=== PATIENT | female | born 1975 | race Caucasian/White ===

== ENCOUNTER → 2021-03-28 12:02 | Outpatient (CLI) | payer OTHER, MEDICARE, SELFPAY ==
[2015-11-28 10:20] VITALS: BMI 37.4
[2021-03-28 12:12] LABS: Mucous, Urine 0 SEEN /hpf (<or=2+); Red Blood Cells-Urine 0 SEEN /hpf (0-5)
[2021-03-28 14:57] LABS: Color, Urine Yellow (Yellow); Glucose, Dipstick Normal (Normal); Ketone-Dipstick Negative (Negative); Leukocyte Esterase-Dipstick 25 /ul (Negative); Nitrite-Dipstick Positive (Negative); Occult Blood-Urine 150 /ul (Negative); Protein-Dipstick Negative (Negative); Specific Gravity, Urine 1.015 (1.002-1.030); Urine Bilirubin Dipstick Negative (Negative); Urine Clarity Clear (Clear); Urine Urobilinogen Normal (Normal)
[2021-03-28 15:02] LABS: White Blood Cells 10-25 SEEN /hpf (0-5)
[2021-03-28 15:03] LABS: Bacteria RARE /hpf (None Seen); Squamous Epithelial Cells - UA 5-10 SEEN /hpf (5-10)
[2021-03-28 15:28] LABS: ALB/GLOB Ratio 0.9 RATIO (0.9-2.4); AST(SGOT) 17 U/L (15-37); Alanine Aminotransfer ALT/SGPT 32 U/L (13-56); Albumin, Serum 3.5 g/dL (3.2-5.0); Alkaline Phosphatase 65 U/L (45-117); Anion Gap 9 (5-15); BUN 12 mg/dL (7-18); BUN/Creat Ratio 16.1 RATIO (10-20); Calcium,Total 8.7 mg/dL (8.5-10.1); Chloride 103 mmol/L (98-107); Cholesterol 151 mg/dL (200); Creatinine, Serum 0.74 mg/dL (0.55-1.02); EST Glomerular Filtration Rate 90 mL/min (>60); Est Glom Filt Rate - Afr Amer 109 mL/min (>60); Globulin 4.1 g/dL (2.2-4.2); Glucose 92 mg/dL (74-106); High Density Lipoprotein 58 mg/dL; Potassium 3.8 mmol/L (3.5-5.1); Protein, Total 7.6 g/dL (6.4-8.2); Sodium Level 138 mmol/L (136-145); Thyroid Stim Hormone (TSH) 2.49 uIU/mL (0.358-3.74); Triglycerides 149 mg/dL; Very Low Density Lipoprotein 30 mg/dL (5-40)
== END ==
PROVIDERS: PCP Family Medicine; Referring Provider Family Medicine; Visit Provider Family Medicine
DX: I10 Essential (primary) hypertension (principal); M08.00 Unspecified juvenile rheumatoid arthritis of unspecified site
CPT/HCPCS: 36415; 80053; 80061; 81001; 84443

== ENCOUNTER → 2021-04-03 | Outpatient (CLI) | payer OTHER, MEDICARE, SELFPAY | END | disposition home or self-care (01) | LOC: LABSPEC 15:28 | PROVIDERS: PCP Family Medicine; Visit Provider Family Medicine | DX: N39.0 Urinary tract infection, site not specified (principal) | CPT/HCPCS: 87077; 87086; 87088; 87186 ==

== ENCOUNTER → 2021-07-04 | Outpatient (CLI) | payer OTHER, MEDICARE, SELFPAY | END | disposition home or self-care (01) | LOC: LABSPEC 15:07 | PROVIDERS: PCP Family Medicine; Visit Provider Family Medicine | DX: U07.1 COVID-19 (principal) | CPT/HCPCS: 87635; U0005; U0003 ==

== ENCOUNTER 2021-07-06 15:10 | Outpatient (CLI) | payer OTHER, MEDICARE, SELFPAY ==
[2021-07-06 15:26] VITALS: BP 122/92; PULSE 63; RESP 18; TEMP 37.1; O2SAT 95; BMI 56.7
[2021-07-06] MEDS: 0.9% Saline Lock 10 ML Syringe IV (15:48)
[2021-07-06 16:14] VITALS: BP 105/81; PULSE 58; RESP 20; TEMP 37; O2SAT 95
[2021-07-06 17:14] VITALS: BP 114/78; PULSE 56; RESP 16; TEMP 36.9; O2SAT 96
== END 2021-07-06 17:16 | disposition home or self-care (01) ==
LOC: ICUOUT 15:11 → MS2 15:12
PROVIDERS: PCP Family Medicine; Referring Provider Nurse Practitioner Acute Care; Visit Provider Nurse Practitioner Acute Care
DX: Z23 Encounter for immunization (principal); U07.1 COVID-19
CPT/HCPCS: J7050; M0243; A4216; Q0244

== ENCOUNTER 2021-08-17 18:57 | Emergency (ER) | payer OTHER, MEDICARE, SELFPAY ==
[2021-08-17 18:58] VITALS: BP 199/101; PULSE 115; RESP 18; TEMP 36.7; O2SAT 97; BMI 56.8
[2021-08-17 19:01] VITALS: BP 199/101; PULSE 115; RESP 18; TEMP 36.7; O2SAT 97
[2021-08-17 19:44] LABS: Mucous, Urine 0 SEEN /hpf (<or=2+)
[2021-08-17 19:48] LABS: Color, Urine Brown (Yellow); Glucose, Dipstick Normal (Normal); Ketone-Dipstick 5 mg/dl (Negative); Leukocyte Esterase-Dipstick 500 /ul (Negative); Nitrite-Dipstick Positive (Negative); Occult Blood-Urine 250 /ul (Negative); Protein-Dipstick 100 mg/dl (Negative); Urine Clarity Turbid (Clear); Urine Urobilinogen 1 mg/dl (Normal); Urine pH 6.5 (5.0 - 8.0)
[2021-08-17 19:49] LABS: Urine Bilirubin Dipstick 1 mg/dL (Negative)
[2021-08-17 20:01] LABS: Red Blood Cells-Urine > 100 SEEN /hpf (0-5); White Blood Cells 0-5 SEEN /hpf (0-5)
[2021-08-17 20:02] LABS: Bacteria 1+ /hpf (None Seen); Squamous Epithelial Cells - UA 0-5 SEEN /hpf (5-10)
[2021-08-17] MEDS: Phenazopyridine 95 MG Tablet PO (21:08)
[2021-08-17] MEDS: Cephalexin 250 MG Capsule 500 MG PO (21:08)
--- NOTE | 2021-08-17 22:03 | ED.VIS.FEGU ---
HPI HPI - Female History of Present Illness Chief Complaint: Complaint Narrative Narrative: 46-year-old female presenting with dysuria and urinary frequency as well as some hematuria for the last 2 to 3 days. She denies fever, systemic signs or symptoms. Patient has not had any nausea or vomiting. She denies history of kidney stones. Her most recent UTI was a couple of months ago. She was on antibiotics but cannot recall what the name of it is. Patient states she did develop a yeast infection after this needed Diflucan. Patient denies flank pain. PFSH PFSH Home Medications atenolol-chlorthalidone 50 tab PO DAILY 07/06/21 [History Last Taken Unknown] cephalexin 500 mg PO BID 7 Days #14 cap 08/17/21 [Rx Last Taken Unknown] fluconazole [Diflucan] 150 mg PO DAILY #1 tab 08/17/21 [Rx Last Taken Unknown] phenazopyridine [Pyridium] 100 mg PO Q8H 2 Days #6 tab 08/17/21 [Rx Last Taken Unknown] Allergy/AdvReac Type Severity Reaction Status Date / Time morphine Allergy Hives Verified 07/05/21 13:59 Sulfa (Sulfonamide AdvReac Vomiting Verified 07/05/21 13:59 Antibiotics) Surgical History History of hip replacement Total knee replacement status Tubal ligation status Social History Smoking Status: Former smoker ROS ROS ED Constitutional Constitutional ED: Denies chills or fever(s) Eyes Eyes: Denies blurry vision or change in vision ENT ENT ED: Denies rhinorrhea or sore throat Cardiovascular Cardiovascular: Denies chest pain or palpitations Respiratory/Chest Respiratory/Chest: Denies cough or dyspnea Gastrointestinal Gastrointestinal: Denies abdominal pain, nausea or vomiting Genitourinary Genitourinary ED: Reports dysuria, hematuria and urinary frequency Musculoskeletal Musculoskeletal: Denies arthralgias or myalgias Integumentary Denies Abrasions or rash Neurologic Neurologic: Denies headache(s) or paresthesias EXAM Physical Exam Const Vital Signs: 08/17/21 18:58 08/17/21 19:01 Temperature 98.0 F 98.0 F Temperature Source Temporal Temporal Pulse Rate 115 H 115 H Respiratory Rate 18 18 Blood Pressure 199/101 H 199/101 H Blood Pressure Mean 133 133 Pulse Ox 97 97 Oxygen Delivery Method Nasal Cannula Room Air Positive well nourished General Appearance ED: NAD; Negative for pallor HEENT Reports moist mucous membranes Negative for trauma Eyes PERRL and EOMs intact bilaterally Resp normal respiratory effort and clear to auscultation bilaterally Cardio regular rate and regular rhythm GI normal to inspection, nondistended, normoactive bowel sounds Psych mental status grossly normal Skin General Skin Exam: Negative for jaundice or pallor MDM MDM MDM Narrative Medical decision making narrative: Patient presenting with hematuria and dysuria as well as urinary frequency. Urinalysis is positive for infection. Patient does not have any flank pain or concern for history of kidney stones. Patient will be treated symptomatically and started on Keflex 500 mg with first dose in the ED. She is given a prescription for this as well as Pyridium. She requested a dose of Diflucan because she developed a yeast infection after her last UTI. This was provided. She is given return precautions. Urine culture is sent and is pending. Impression: 1 UTI Lab Data Labs: Laboratory Results - last 24 hr 08/17/21 19:35 Urine Color Brown Urine Clarity Turbid Urine pH 6.5 Ur Specific [place] 1.020 Urine Protein 100 H Urine Glucose (UA) Normal Urine Ketones 5 H Urine Occult Blood 250 H Urine Nitrite Positive H Urine Bilirubin 1 H Urine Urobilinogen 1 H Ur Leukocyte Esterase 500 H Urine RBC > 100 SEEN Urine WBC 0-5 SEEN Ur Squamous Epith Cells 0-5 SEEN Urine Bacteria 1+ Urine Mucus 0 SEEN Discharge Plan Triage Chief Complaint: Complaint ED Provider: Bharat Dejesus Dx/Rx/DC Orders Instructions: ED CYSTITIS Female Adult Prescriptions: New cephalexin 500 mg capsule 500 mg PO BID 7 Days Qty: 14 RF: 0 phenazopyridine [Pyridium] 100 mg tablet 100 mg PO Q8H 2 Days Qty: 6 RF: 0 fluconazole [Diflucan] 150 mg tablet 150 mg PO DAILY Qty: 1 RF: 0 No Action atenolol-chlorthalidone 50-25 mg tablet 50 tab PO DAILY RF: 0 Primary Care Provider: Mary Fernandez Referrals: Mary Fernandez MD [Primary Care Provider] - Disposition Disposition: Home, Self Care Discharge Date/Time: 08/17/21 21:17
== END 2021-08-17 21:17 | disposition home or self-care (01) ==
PROVIDERS: Emergency Provider Student in an Organized Health Care Education/Training Program; PCP Family Medicine
DX: N39.0 Urinary tract infection, site not specified (principal); R31.9 Hematuria, unspecified; Z79.899 Other long term (current) drug therapy; Z87.440 Personal history of urinary (tract) infections; Z87.891 Personal history of nicotine dependence
CPT/HCPCS: 81001; 99281; 99283

== ENCOUNTER → 2023-11-10 | Outpatient (CLI) | payer OTHER, MEDICARE, SELFPAY ==
--- NOTE | 2023-11-10 09:13 | BI_ITS ---
MAMMOGRAPHY - BILATERAL DIAGNOSTIC REASON FOR EXAM: Female, 48 years old. Small palpable lump in the retroareolar region of the right breast. PERTINENT HISTORY: Non-contributory. TECHNIQUE: Digital bilateral breast lucrecia (3D mammographic acquisition) in the CC and MLO projections. 2-D mediolateral oblique (MLO) and craniocaudad (CC) views of both breasts were obtained. CAD: Full Field Digital Mammography with Computer Added Detection was performed. COMPARISON: None. Baseline examination. FINDINGS: Breast Composition: The breasts are heterogeneously dense, which may obscure small masses. There are no dominant masses or suspicious calcifications. No other significant abnormalities are identified. BI/DIAG MAMM W/CAD, BILAT IMPRESSION: Negative diagnostic mammogram. With the patient''s history of a palpable lump in the retroareolar region of the right breast, correlation with ultrasound is recommended. ASSESSMENT CATEGORY: BIRADS Category 0: Incomplete. Need additional imaging evaluation. A letter regarding these results will be sent to the patient by the facility within 30 days. Approximately 10% of breast cancers are not detected by mammography. A normal mammogram should not delay biopsy of a clinically suspicious abnormality. Electronically Signed: Chandler Haley MD at 8:46 EST ,
--- NOTE | 2023-11-10 09:13 | US_ITS ---
STUDY: ULTRASOUND BREAST - RIGHT REASON FOR EXAM: Female, 48 years old. Palpable lump in the lateral aspect of the right breast. TECHNIQUE: Axial and longitudinal images of the RIGHT breast were performed with a high resolution ultrasound transducer. # OF IMAGES: 20 COMPARISON: Comparison is made with prior mammogram dated November 2023. FINDINGS: RIGHT Breast: The lateral aspect of the right breast was examined with ultrasound. No sonographic abnormalities seen. US/Breast Limited Unilateral IMPRESSION: No sonographic abnormality is seen. ASSESSMENT CATEGORY: BIRADS Category 1: Negative. A letter regarding these results will be sent to the patient by the facility within 30 days. Electronically Signed: Chandler Haley MD at 11:28 EST ,
== END | disposition home or self-care (01) ==
LOC: OPBI 09:11
PROVIDERS: PCP Family Medicine; Referring Provider Family Medicine; Visit Provider Family Medicine
DX: N63.10 Unspecified lump in the right breast, unspecified quadrant (principal)
CPT/HCPCS: 76642; 77062; 77066; G0279

== ENCOUNTER → 2025-07-15 | Outpatient (CLI) | payer MEDICARE, BC, SELFPAY ==
[2025-07-15 15:26] LABS: Hematocrit 41.7 % (37-47); Hemoglobin 13.8 g/dL (12.0-15.0); Immature Granulocytes Count 0.100 X10^3/uL (0.0-0.0); Mean Corp Hgb Conc 33.1 g/dL (32-36); Mean Corpuscular Volume 89.5 fL (81-99); Mean Platelet Vol. 10.9 fl (6.2-12.0); NRBC Flagged by Analyzer 0 % (0-5); Platelet Count 400 K/mm3 (150-450); RBC Distribution Width CV 13.4 % (11.6-14.6); RBC Distribution Width SD 43.8 fl (35.1-43.9); Red Blood Count 4.66 M/mm3 (4.2-5.4); White Blood Count 10.9 K/mm3 (4.4-11.0)
[2025-07-15 16:18] LABS: AST(SGOT) 20 U/L (<=31); Alanine Aminotransfer ALT/SGPT 18 U/L (<=34); Albumin, Serum 4.1 g/dL (3.5-5.0); Alkaline Phosphatase 65 U/L (35-104); Anion Gap 17 (5-15); BUN 15 mg/dL (4-19); BUN/Creat Ratio 19.6 RATIO (10-20); Calcium,Total 9.7 mg/dL (7.6-11.0); Carbon Dioxide 22.3 mmol/L (21.0-32.0); Chloride 99 mmol/L (98-108); Globulin 3.8 g/dL (2.2-4.2); Glucose 101 mg/dL (70-99); Potassium 3.6 mmol/L (3.3-5.1)
== END | disposition home or self-care (01) ==
LOC: BFHLAB 11:31
PROVIDERS: PCP Family Medicine; Visit Provider Family Medicine
DX: I10 Essential (primary) hypertension (principal)
CPT/HCPCS: 36415; 80053; 83036; 85025

== ENCOUNTER 2025-10-17 11:44 | Inpatient (IN) | payer BC, MEDICARE, SELFPAY ==
[2025-10-17 11:45] VITALS: BP 153/90; PULSE 80; RESP 20; TEMP 36.1; O2SAT 97
--- NOTE | 2025-10-17 17:36 | RAD_ITS ---
PROCEDURE: RIGHT FOOT MIN 3 VIEWS; ANKLE MIN 3 VIEWS 10/17/2025 REASON FOR EXAM: PAIN TECHNIQUE: Procedure Code: RADFO; RADCLARA Modality: DX Procedure: FOOT MIN 3 VIEWS; ANKLE MIN 3 VIEWS Laterality: Right COMPARISON: None. FINDINGS: No acute fracture or dislocation. Congruent ankle mortise. Diffuse ankylosis/coalition of the tarsal bones including ankylosis of the talonavicular, calcaneocuboid, and subtalar joint spaces. 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 Small calcaneal spurs. Mild nonspecific generalized soft tissue swelling/edema. RAD/Foot min 3 Views IMPRESSION: No acute or aggressive osseous abnormality. 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 Reading Location: [id number]
--- NOTE | 2025-10-17 17:36 | RAD_ITS ---
PROCEDURE: RIGHT FOOT MIN 3 VIEWS; ANKLE MIN 3 VIEWS 10/17/2025 REASON FOR EXAM: PAIN TECHNIQUE: Procedure Code: RADFO; RADCLARA Modality: DX Procedure: FOOT MIN 3 VIEWS; ANKLE MIN 3 VIEWS Laterality: Right COMPARISON: None. FINDINGS: No acute fracture or dislocation. Congruent ankle mortise. Diffuse ankylosis/coalition of the tarsal bones including ankylosis of the talonavicular, calcaneocuboid, and subtalar joint spaces. 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 Small calcaneal spurs. Mild nonspecific generalized soft tissue swelling/edema. RAD/Ankle min 3 Views IMPRESSION: No acute or aggressive osseous abnormality. 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 Reading Location: [id number]
--- NOTE | 2025-10-17 17:45 | RAD_ITS ---
PROCEDURE: LEFT FOOT MIN 3 VIEWS; ANKLE MIN 3 VIEWS 10/17/2025 REASON FOR EXAM: FALL; INJURY TECHNIQUE: Procedure Code: RADFO; RADANK Modality: DX Procedure: FOOT MIN 3 VIEWS; ANKLE MIN 3 VIEWS Laterality: Left COMPARISON: None. FINDINGS: No acute fracture or dislocation. Alignment is anatomic. Congruent ankle mortise. Mild-moderate degenerative arthrosis of the intertarsal articulations. Nonspecific generalized lower extremity soft tissue swelling/edema. No unusual mineralization. RAD/Foot min 3 Views IMPRESSION: No acute or aggressive osseous abnormality. Reading Location: [id number]
--- NOTE | 2025-10-17 17:45 | RAD_ITS ---
PROCEDURE: LEFT FOOT MIN 3 VIEWS; ANKLE MIN 3 VIEWS 10/17/2025 REASON FOR EXAM: FALL; INJURY TECHNIQUE: Procedure Code: RADFO; RADANK Modality: DX Procedure: FOOT MIN 3 VIEWS; ANKLE MIN 3 VIEWS Laterality: Left COMPARISON: None. FINDINGS: No acute fracture or dislocation. Alignment is anatomic. Congruent ankle mortise. Mild-moderate degenerative arthrosis of the intertarsal articulations. Nonspecific generalized lower extremity soft tissue swelling/edema. No unusual mineralization. RAD/Ankle min 3 Views IMPRESSION: No acute or aggressive osseous abnormality. Reading Location: [id number]
[2025-10-17 18:02] VITALS: BP 142/81; PULSE 74; RESP 20; O2SAT 97
--- NOTE | 2025-10-17 18:16 | EX.ED.DYSGE1 ---
HPI History of Present Illness Chief Complaint: Edema Narrative Narrative: Patient is 50-year-old female with past medical history of juvenile rheumatoid arthritis who presented to the emergency department the chief complaint of bilateral foot and ankle pain. She states that this been going on since Thanks however states that is progressively worsening which prompted her here to be further evaluated. States that she has been trying ibuprofen and Tylenol without any relief. Patient denies any injuries or falls. She states that she was concerned about her tendons even though she had no injuries or trauma and denies any popping sensation. PFSH PFSH Home Medications ?Medication ?Instructions ?Recorded ?Last Taken ?Type atenolol 50 mg-chlorthalidone 25 1 tab PO DAILY 07/06/21 10/17/25 History mg tablet ibuprofen 200 mg tablet (Advil) 400 mg PO Q6H PRN fever or pain 10/17/25 10/17/25 History tirzepatide (weight loss) 7.5 7.5 mg subcut QWEEK 10/17/25 10/07/25 History mg/0.5 mL subcutaneous pen injector (Zepbound) Allergy/AdvReac Type Severity Reaction Status Date / Time morphine Allergy Hives Verified 10/17/25 11:45 Sulfa (Sulfonamide AdvReac Vomiting Verified 10/17/25 11:45 Antibiotics) Surgical History Tubal ligation status Total knee replacement status History of hip replacement Social History Smoking Status: Former smoker ROS ROS ED ROS Narrative Constitutional: Denies fevers, chills, headaches Cardiovascular: Denies chest pain Respiratory: Shortness of breath Neurological: Denies numbness or tingling Musculoskeletal: Complains of bilateral foot and ankle pain as noted above Skin: Denies any rashes or lesions EXAM Physical Exam Narrative Exam Narrative: General: Patient was lying in bed rest comfortably did not appear to be in acute distress Head: Atraumatic, Eyes: PERRL bilaterally, EOMI bilaterally, no conjunctival injection no Neck: Soft, supple, trachea midline Cardiovascular: Regular rate and rhythm Respiratory: Clear to auscultation bilaterally Musculoskeletal: Bilateral lower extremity compartments are soft and compressible, tenderness to palpation over the right lateral malleolus as well as some mild tenderness to palpation over the left ankle as well. Negative Carcamo test bilaterally Extremities: DP pulses +2/4 in the bilateral lower extremities, +4/5 strength noted to bilateral lower extremities Neurological: Patient following commands knew that she was at [facility] year is 2024 sensation grossly intact Skin: Warm, dry, intact patient has mild ecchymosis over the right lateral malleolus. Const Vital Signs: 10/17/25 11:45 10/17/25 17:00 10/17/25 18:02 Temperature 97 F L Temperature Source Temporal Pulse Rate 80 74 Respiratory Rate 20 H 20 H Respiratory Effort Normal Respiratory Pattern Normal Blood Pressure 153/90 H 142/81 H Blood Pressure Mean 111 101 Pulse Ox 97 97 Oxygen Delivery Method Room Air Room Air 10/17/25 19:54 10/17/25 20:00 Temperature 97 F L Temperature Source Pulse Rate 74 69 Respiratory Rate 20 H 18 Respiratory Effort Respiratory Pattern Blood Pressure 142/81 H Blood Pressure Mean 101 Pulse Ox 97 100 Oxygen Delivery Method Room Air MDM MDM MDM Narrative Medical decision making narrative: Patient is a 50-year-old female who presented to the emergency department the chief complaint of bilateral foot and ankle pain. On the differential diagnose includes but limited to lateral malleolus fracture, medial malleolus fracture, ankle sprain. Once workup is obtained reviewed she will be reevaluated. Patient be given IM Toradol. Patient says CBC was reviewed and showed a leukocytosis of 17,000 this likely reactive, heme was 14.4, plate count was 9552. Patient's chemistries are pending. Discussed case with hospitalist as the patient was unable to get up and ambulate for PT OT evaluation as well as podiatry consult. Patient does state that she has had oxycodone in the past and tolerated this well she will be given a dose of this here in the emergency department will Vane. She is agreeable to plan all question concerns answered. Lab Data Labs: Laboratory Results - last 24 hr 10/17/25 20:00 WBC 17.3 H RBC 4.87 Hgb 14.4 Hct 43.0 MCV 88.3 MCH 29.6 MCHC 33.5 RDW Std Deviation 40.6 RDW Coeff of Kavon 12.6 Plt Count 552 H MPV 10.1 Immature Gran % (Auto) 1.000 H Neut % (Auto) 70.7 H Lymph % (Auto) 18.9 L [place] % (Auto) 7.8 Eos % (Auto) 1.0 Baso % (Auto) 0.6 Absolute Neuts (auto) 12.2 H Absolute Lymphs (auto) 3.27 Nucleated RBC % 0 Radiography Diagnostic Testing: Clinical Impression(s) from Imaging Studies Ankle X-Ray 10/17/25 17:36 IMPRESSION: No acute or aggressive osseous abnormality. 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 Reading Location: [facility] Foot X-Ray 10/17/25 17:36 IMPRESSION: No acute or aggressive osseous abnormality. 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 Reading Location: [facility] Ankle X-Ray 10/17/25 17:45 IMPRESSION: No acute or aggressive osseous abnormality. Reading Location: [id number] Foot X-Ray 10/17/25 17:45 IMPRESSION: No acute or aggressive osseous abnormality. Reading Location: [facility] Discharge Plan Dx/Rx/DC Orders Clinical Impression: Bilateral foot pain, Bilateral ankle pain, Hx of rheumatoid arthritis Disposition Disposition: [facility]
[2025-10-17 19:54] VITALS: BP 142/81; PULSE 74; RESP 20; TEMP 36.1; O2SAT 97
[2025-10-17 20:00] VITALS: PULSE 69; RESP 18; O2SAT 100
[2025-10-17] MEDS: 0.9% Normal Saline (1000mL) 1,000 ML 999 ML IV (20:02)
[2025-10-17 20:24] LABS: Hematocrit 43.0 % (37-47); Hemoglobin 14.4 g/dL (12.0-15.0); Immature Granulocytes Count 0.170 X10^3/uL (0.0-0.0); Mean Corp Hgb Conc 33.5 g/dL (32-36); Mean Corpuscular Volume 88.3 fL (81-99); Mean Platelet Vol. 10.1 fl (6.2-12.0); NRBC Flagged by Analyzer 0 % (0-5); Platelet Count 552 K/mm3 (150-450); RBC Distribution Width CV 12.6 % (11.6-14.6); RBC Distribution Width SD 40.6 fl (35.1-43.9); Red Blood Count 4.87 M/mm3 (4.2-5.4); White Blood Count 17.3 K/mm3 (4.4-11.0)
--- NOTE | 2025-10-17 20:29 | HP.PCM_ITS ---
[facility] - [facility] Date of Service: 10/17/25 Chief Complaint: Bilateral ankle pain, unable to ambulate [facility] Narrative ANAMARIA SHARP, is a 50 F who presents to the emergency room with chief complaint of bilateral ankle pain. Onset of this pain began at Thanksgiving time and has progressed to the point to which she is now unable to ambulate or transfer to do activities of daily living including going to the bathroom. Patient does have a history of juvenile arthritis but is currently not taking any DMARD medications at this time. Patient denies chest pain, shortness of breath fevers or chills at present time. She states she did start taking Zepbound and has had a 20 to 30 pound weight loss in the last several months. Laboratory studies show white blood cell count of 17.3, hemoglobin 14.4, hematocrit 43, platelets 552. X-ray left foot and ankle was negative for acute findings but showed some chronic arthritis, x-ray right foot and ankle also showed no acute bony abnormalities but did show moderate arthritic change. Since patient is unable to take care of herself and transfer for activities of daily living she will be admitted to general medical floor, podiatry consultation obtained for further assessment, will get PT to evaluate and treat as well as case management for discharge planning. Patient expressed wish to be full code at this time. [facility] Home Medications ?Medication ?Instructions ?Recorded ?Last Taken ?Type atenolol 50 mg-chlorthalidone 25 1 tab PO DAILY 10/17/25 History mg tablet ibuprofen 200 mg tablet (Advil) 400 mg PO Q6H PRN feve r or pain 10/17/25 10/17/25 History tirzepatide (weight loss) 7.5 7.5 mg subcut QWEEK 10/0310/07/25 History mg/0.5 mL subcutaneous pen injector (Zepbound) Allergy/AdvReac Type Severity Reaction Status Date / Time morphine Allergy Hives Verified 10/17/25 11:45 Sulfa (Sulfonamide AdvReac Vomiting Verified 10/17/25 11:45 Antibiotics) Surgical History Tubal ligation status Total knee replacement status History of hip replacement Social History Smoking Status: Former smoker ROS Constitutional Constitutional: Denies chills or fever(s) Eyes Eyes: Denies blurry vision ENT HEENT: Denies abnormal hearing Cardiovascular Cardiovascular: Reports edema; Denies chest pain Respiratory/Chest Respiratory/Chest: Denies cough or shortness of breath at rest Gastrointestinal Gastrointestinal: Denies abdominal pain, nausea or vomiting Genitourinary Genitourinary: Denies dysuria or hematuria Musculoskeletal Musculoskeletal: Reports joint pain; Denies back pain Integumentary Integumentary: Denies jaundice, rash or wounds Neurologic Neurologic: Denies abnormal gait Psychiatric Psychiatric: Denies anxiety or depression Vital Signs Vital Signs Vital Signs: 10/17/25 11:45 10/17/25 17:00 10/17/25 18:02 Temperature 97 F L Temperature Source Temporal Pulse Rate 80 74 Respiratory Rate 20 H 20 H Respiratory Effort Normal Respiratory Pattern Normal Blood Pressure 153/90 H 142/81 H Blood Pressure Mean 111 101 Pulse Ox 97 97 Oxygen Delivery Method Room Air Room Air 10/17/25 19:54 10/17/25 20:00 Temperature 97 F L Temperature Source Pulse Rate 74 69 Respiratory Rate 20 H 18 Respiratory Effort Respiratory Pattern Blood Pressure 142/81 H Blood Pressure Mean 101 Pulse Ox 97 100 Oxygen Delivery Method Room Air Physical Exam Const alert and oriented x3 General Appearance: cooperative and well developed HEENT normocephalic and head/scalp atraumatic Eyes PERRL Neck no lymphadenopathy Lymph Lymphatic: no lymphadenopathy noted Resp normal respiratory effort, normal air movement and clear to auscultation bilaterally Cardio regular rate, regular rhythm, S1 normal heart sound, S2 normal heart sound and no murmurs GI normal to inspection, nondistended, normoactive bowel sounds Extremity Extremity Narrative: Point tenderness on ankles lateral malleolus bilaterally. No palpable deformity and mild edema is present. There is no erythema or sign of infection General Extremity: edema bilateral lower extremity Details: mild Skin General Skin Exam: no breakdown and dry skin Lesions: no lesions Neuro no focal motor deficits and no sensory deficits noted Psych thought process normal, cooperative and affect normal Results Lab / Micro Data 10/17/25 20:00 10/17/25 20:00 Labs: Laboratory Results - last 24 hr 10/17/25 20:00: WBC 17.3 H, RBC 4.87, Hgb 14.4, Hct 43.0, MCV 88.3, MCH 29.6, MCHC 33.5, RDW Std Deviation 40.6, RDW Coeff of Kavon 12.6, Plt Count 552 H, MPV 10.1, Immature Gran % (Auto) 1.000 H, Neut % (Auto) 70.7 H, Lymph % (Auto) 18.9 L, [place] % (Auto) 7.8, Eos % (Auto) 1.0, Baso % (Auto) 0.6, Absolute Neuts (auto) 12.2 H, Absolute Lymphs (auto) 3.27, Nucleated RBC % 0 Imaging Radiology Impression Ankle X-Ray 10/17/25 17:36 IMPRESSION: No acute or aggressive osseous abnormality. 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 Reading Location: [facility] Foot X-Ray 10/17/25 17:36 IMPRESSION: No acute or aggressive osseous abnormality. 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 Reading Location: [facility] Ankle X-Ray 10/17/25 17:45 IMPRESSION: No acute or aggressive osseous abnormality. Reading Location: [facility] Foot X-Ray 10/17/25 17:45 IMPRESSION: No acute or aggressive osseous abnormality. Reading Location: [facility] Assessment & Plan Assessment/Plan (1) Hx of rheumatoid arthritis: (2) Bilateral ankle pain: (3) Bilateral foot pain: PLAN: Plan 1. Bilateral ankle and foot pain?patient is currently unable to ambulate and transfer due to her pain in her ankle and feet will therefore admit to general medical floor, consult podiatry Dr. Bills. Repeat CBC, BMP and uric acid level in a.m. along with ESR CRP. Due to the fact a history of rheumatoid arthritis would most likely consider this an active flareup of her known disease. Dr. Bills plans to see her in the morning and will assess if further imaging or other tests are needed at that time. 2. DVT prophylaxis?low molecular weight heparin 3. CODE STATUS full verified 4. Obesity?will hold her GLP-1 at this time Charges/Coding Visit Charges Inpatient E&M: 30761 Init Hosp L2
[2025-10-17 20:38] LABS: AST(SGOT) 20 U/L (<=31); Alanine Aminotransfer ALT/SGPT 19 U/L (<=34); Albumin, Serum 4.1 g/dL (3.5-5.0); Alkaline Phosphatase 66 U/L (35-104); Anion Gap 17 (5-15); BUN 20 mg/dL (4-19); BUN/Creat Ratio 19.1 RATIO (10-20); Calcium,Total 10.0 mg/dL (7.6-11.0); Carbon Dioxide 24.7 mmol/L (21.0-32.0); Chloride 96 mmol/L (98-108); Globulin 4.5 g/dL (2.2-4.2); Glucose 96 mg/dL (70-99); Potassium 3.4 mmol/L (3.3-5.1)
--- OUTSIDE RECORDS SUMMARY | 2025-10-17 21:03 | XMS RPT_ITS | CCD ---
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 Hernandez Primary Care Physician Jim LOPEZ, Dr. Hernandez Attending Physician Mary Fernandez Attending Unavailable Mary Fernandez Primary Care Unavailable Allergies Allergy Classification Reported Allergen(s) Allergy Type Date of Onset Reaction(s) Facility (2 sources) Morphine Drug Allergy 1 [facility] (2 sources) Sulfonamides (Antibiotic) Propensity to adverse reactions 1 [facility] (1 source) Morphine Drug Allergy 1 [facility]ository (1 source) Sulfonamides (Antibiotic) Drug allergy (disorder) 1 [facility] Rep[facility] Medications Current Medications Medication Drug Class(es) Dates Sig (Normalized) Sig (Original) atenolol 50 mg / chlorthalidone 25 mg oral tablet (2 sources) Thiazide-like Diuretic, beta-Adrenergic Edith Start: 07-06-2021 Start: 07-06-2021 take 1 tablet by once daily Atenolol-Chlorthalidone Active 50 TABLET PO DAILY July 05, 2021 11:00pm cephalexin 500 mg oral capsule (2 sources) Cephalosporin Antibacterial Start: 08-17-2021 take 1 capsule by mouth twice daily fluconazole 150 mg oral tablet (2 sources) Azole Antifungal Start: 08-17-2021 take 1 tablet by mouth once daily phenazopyridine hydrochloride 100 mg oral tablet (2 sources) Start: 08-17-2021 take 1 tablet by mouth every eight hours Problems Problem Classification Problem Date Documented Da te Episodic/Chronic Essential hypertension (1 source) Essential (primary) hypertension; Translations: [Essential (primary) hypertension] Onset: 08-05-2025 Chronic Viral infection (2 sources) Disease caused by 2019-nCoV; Translations: [COVID-19] 07-05-2021 Episodic Results Test Name Value Interpretation Reference Range Facility Absolute lymphocyte countOrd ered By: Mary Fernandez on 07-15-2025 Lymphocytes Auto (Unsp spec) [#/Vol] 2.73 10*3/uL 0.83-4.51 [facility] Absolute neutrophil countOrd ered By: Mary Fernandez on 07-15-2025 Neutrophils (Bld) [#/Vol] 6.9 10*3/uL 2.0-7.7 [facility] Anion gap in Serum or Plasma Ordered By: Mary Fernandez on 07-15-2025 Anion gap [Moles/Vol] 17 mmol/L High 5-15 [facility] Automated lymphocyte count a s percentage of total leukocytesOrdered By: Mary Fernandez on 07-15-2025 Lymphocytes/100 WBC Auto (Unsp spec) 25.1 % 19-41 [facility] BUN/creatinine ratioOrdered By: Mary Fernandez on 07-15-2025 Urea nitrogen/Creatinine [Mass ratio] 19.6 mg/mg 10-20 [facility] Basophil percentageOrdered B y: Mary Fernandez on 07-15-2025 Basophils/100 WBC (Bld) 0.8 % 0- [facility] Bilirubin, totalOrdered By: Mary Fernandez on 07-15-2025 Bilirubin [Mass/Vol] 0.30 mg/dL 0.00-1.30 [facility] CBC W/Diff, Automatedon 07-04 Absolute Lymph 2.73 X10 3/uL Normal 0.83-4.51 [facility] Comment on above: Performed By: #### L 501.9985, L100.0100, L500.4050 #### [facility] [address] [place], [address] Absolute Neut 6.9 X10 3/uL Normal 2.0-7.7 [facility] Comment on above: Performed By: #### L 501.9985, L100.0100, [id number] #### [facility] [address] [place], [address] Basophils/100 WBC (Bld) 0.8 % Normal 0-1 [facility] Comment on above: Performed By: #### L 501.9985, L100.0100, [id number] #### [facility] [address] [place], [address] Eosinophils/100 WBC (Bld) 2.3 % Normal 0-5 [facility] Comment on above: Performed By: #### L 501.9985, L100.0100, [id number] #### [facility] [address] [place], [address] Erythrocyte distribution width (RBC) [Ratio] 13.4 % Normal 11.6-14.6 [facility] Comment on above: Performed By: #### L 501.9985, L100.0100, [id number] #### [facility] [address] [place], [address] Hematocrit (Bld) [Volume fraction] 41.7 % Normal 37-47 [facility] Comment on above: Performed By: #### L 501.9985, L100.0100, [id number] #### [facility] [address] [place], [address] Hemoglobin (Bld) [Mass/Vol] 13.8 g/dL Normal 12.0-15.0 [facility] Comment on above: Performed By: #### L 501.9985, L100.0100, [id number] #### [facility] [address] [place], [address] IG% 0.900 Normal 0.0-0.9 [facility] Comment on above: Result Comment: IG% - Immature Granulocytes (promyelocytes, myelocytes and metamyelocytes) > 1% indicates that a LEFT SHIFT is Present. Performed By: #### L 501.9985, L100.0100, L500.4050 #### [facility] [address] [place], [address] Lymphocytes/100 WBC (Bld) 25.1 % Normal 19-41 [facility] Comment on above: Performed By: #### L 501.9985, L100.0100, [id number] #### [facility] [address] [place], [address] MCH (RBC) [Entitic mass] 29.6 pg Normal 27.0-32.0 [facility] Comment on above: Performed By: #### L 501.9985, L100.0100, [id number] #### [facility] [address] [place], [address] MCHC (RBC) [Mass/Vol] 33.1 g/dL Normal 32-36 [facility] Comment on above: Performed By: #### L 501.9985, L100.0100, [id number] #### [facility] [address] [place], [address] MCV (RBC) [Entitic vol] 89.5 fL Normal 81-99 [facility] Comment on above: Performed By: #### L 501.9985, L100.0100, [id number] #### [facility] [address] [place], [address] Monocytes/100 WBC (Bld) 7.8 % Normal 0-10 [facility] Comment on above: Performed By: #### L 501.9985, L100.0100, [id number] #### [facility] [address] [place], [address] Neutrophils/100 WBC (Bld) 63.1 % Normal 47-70 [facility] Comment on above: Performed By: #### L 501.9985, L100.0100, [id number] #### [facility] [address] [place], [address] Nucleated RBC (Bld) [#/Vol] 0 10*3/uL Normal 0-5 [facility] Comment on above: Performed By: #### L 501.9985, L100.0100, [id number] #### [facility] [address] [place], [address] Platelet mean volume (Bld) [Entitic vol] 10.9 fL Normal 6.2-12.0 [facility] Comment on above: Performed By: #### L 501.9985, L100.0100, [id number] #### [facility] [address] [place], [address] Platelets (Bld) [#/Vol] 400 10*3/uL Normal 150-450 [facility] Comment on above: Performed By: #### L 501.9985, L100.0100, [id number] #### [facility] [address] [place], [address] RBC (Bld) [#/Vol] 4.66 10*6/uL Normal 4.2-5.4 [facility] Comment on above: Performed By: #### L 501.9985, L100.0100, [id number] #### [facility] [address] [place], [address] RDW SD 43.8 fl Normal 35.1-43.9 [facility] Comment on above: Performed By: #### L 501.9985, L100.0100, [id number] #### [facility] [address] [place], [address] WBC (Bld) [#/Vol] 10.9 10*3/uL Normal 4.4-11.0 [facility] Comment on above: Performed By: #### L 501.9985, L100.0100, [id number] #### [facility] [address] [place], [address] Carbon dioxide, total [Moles /volume] in Central venous bloodOrdered By: Mary Fernandez on 07-15-2025 CO2 [Moles/Vol] 22.3 mmol/L 21.0-32.0 [facility] Chloride assayOrdered By: Dave Fernandez on 07-15-2025 Chloride [Moles/Vol] 99 mmol/L 98-108 [facility] Comprehensive Metabolic Prof ilon 07-15-2025 Albumin [Mass/Vol] 4.1 g/dL Normal 3.5-5.0 [facility] Comment on above: Performed By: #### L 501.9985, L100.0100, [id number] #### [facility] [address] [place], [address] Albumin/Globulin [Mass ratio] 1.1 {ratio} Normal 0.9-2.4 [facility] Comment on above: Performed By: #### L 501.9985, L100.0100, [id number] #### [facility] [address] [place], [address] ALK PHOS 65 U/L Normal 35-104 [facility] Comment on above: Performed By: #### L 501.9985, L100.0100, [id number] #### [facility] [address] [place], [address] ALT [Catalytic activity/Vol] 18 U/L Normal <=34 [facility] Comment on above: Performed By: #### L 501.9985, L100.0100, [id number] #### [facility] [address] [place], [address] AST [Catalytic activity/Vol] 20 U/L Normal <=31 [facility] Comment on above: Performed By: #### L 501.9985, L100.0100, [id number] #### [facility] [address] [place], [address] Bilirubin [Mass/Vol] 0.30 mg/dL Normal 0.00-1.30 [facility] Comment on above: Performed By: #### L 501.9985, L100.0100, [id number] #### [facility] [address] [place], [address] BUN/CRE 19.6 RATIO Normal 10-20 [facility] Comment on above: Performed By: #### L 501.9985, L100.0100, [id number] #### [facility] [address] [place], [address] Calcium [Mass/Vol] 9.7 mg/dL Normal 7.6-11.0 [facility] Comment on above: Performed By: #### L 501.9985, L100.0100, [id number] #### [facility] [address] [place], [address] Chloride [Moles/Vol] 99 mmol/L Normal 98-108 [facility] Comment on above: Performed By: #### L 501.9985, L100.0100, [id number] #### [facility] [address] [place], [address] CO2 [Moles/Vol] 22.3 mmol/L Normal 21.0-32.0 [facility] Comment on above: Performed By: #### L 501.9985, L100.0100, [id number] #### [facility] [address] [place], [address] Creatinine [Mass/Vol] 0.77 mg/dL Normal 0.70-1.20 [facility] Comment on above: Performed By: #### L 501.9985, L100.0100, [id number] #### [facility] [address] [place], [address] GAP 17 High 5-15 [facility] Comment on above: Performed By: #### L 501.9985, L100.0100, [id number] #### [facility] [address] [place], [address] GFR/1.73 sq M.predicted among non-blacks MDRD (S/P/Bld) [Vol rate/Area] 95 mL/min/{1.73_m2} Normal >60 [facility] Comment on above: Result Comment: mL/m in/1.73m2 CKD-EPI Creatinine Equation (2020) Performed By: #### L 501.9985, L100.0100, [id number] #### [facility] [address] [place], [address] Globulin (S) [Mass/Vol] 3.8 g/dL Normal 2.2-4.2 [facility] Comment on above: Performed By: #### L 501.9985, L100.0100, [id number] #### [facility] [address] [place], [address] Glucose [Mass/Vol] 101 mg/dL High 70-99 [facility] Comment on above: Performed By: #### L 501.9985, L100.0100, [id number] #### [facility] [address] [place], [address] Potassium [Moles/Vol] 3.6 mmol/L Normal 3.3-5.1 [facility] Comment on above: Performed By: #### L 501.9985, L100.0100, [id number] #### [facility] [address] [place], [address] Sodium [Moles/Vol] 138 mmol/L Normal 133-145 [facility] Comment on above: Performed By: #### L 501.9985, L100.0100, [id number] #### [facility] [address] [place], [address] T PROT 7.9 g/dL Normal 5.9-8.4 [facility] Comment on above: Performed By: #### L 501.9985, L100.0100, [id number] #### [facility] [address] [place], [address] Urea nitrogen [Mass/Vol] 15 mg/dL Normal 4-19 [facility] Comment on above: Performed By: #### L 501.9985, L100.0100, [id number] #### [facility] [address] [place], [address] Eosinophil percentageOrdered By: Mary Fernandez on 07-15-2025 Eosinophils/100 WBC (Bld) 2.3 % 0-5 [facility] Erythrocyte distribution wid th ratioOrdered By: Mary Jim on 07-15-2025 Erythrocyte distribution width (RBC) [Ratio] 13.4 % 11.6-14.6 [facility] Erythrocyte distribution wid th standard deviationOrdered By: Mary Fernandez on 07-15-2025 Erythrocyte distribution width (RBC) [Ratio] 43.8 fl 35.1-43.9 [facility] Glomerular filtration rate ( GFR) estimation/1.73 sq m using serum, plasma, or whole bOrdered By: Mary Fernandez on 07-15-2025 GFR/1.73 sq M.predicted among non-blacks MDRD (S/P/Bld) [Vol rate/Area] 95 mL/min/{1.73_m2} >60 [facility] Comment on above: mL/min/1.73m2 CKD-EP I Creatinine Equation (2020) Hematocrit Auto (Bld) [Volum e fraction]Ordered By: Mary Fernandez on 07-15-2025 Hematocrit (Bld) [Volume fraction] 41.7 % 37-47 [facility] Hemoglobin A1con 07-15-2025 HbA1c (Bld) [Mass fraction] 5.7 % Normal <=5.6 [facility] Comment on above: Result Comment: Norm al < 5.7 % Prediabetic 5.7 - 6.4 % Diabetic >or= 6.5 % Please note range changes. Performed By: #### L 501.9937, L100.0100, L500.4050 #### [facility] [address] [place], [address] Hemoglobin A1c percentageOrd ered By: Mary Fernandez on 07-15-2025 HbA1c (Bld) [Mass fraction] 5.7 % <5.7 [facility] Comment on above: Normal < 5.7 % Predi abetic 5.7 - 6.4 % Diabetic >or= 6.5 % Please note range changes. Hemoglobin measurementOrdere d By: Mary Fernandez on 07-15-2025 Hemoglobin (Bld) [Mass/Vol] 13.8 g/dL 12.0-15.0 [facility] Immature granulocytes/100 WB C Auto (Bld)Ordered By: Mary Fernandez on 07-15-2025 Immature granulocytes/100 WBC (Bld) 0.900 % 0.0-0.9 [facility] Comment on above: IG% - Immature Granu locytes (promyelocytes, myelocytes and metamyelocytes) > 1% indicates that a LEFT SHIFT is Present. Laboratory - Chemistry and C hemistry - challengeOrdered By: Mary Fernandez on 07-15-2025 AST [Catalytic activity/Vol] 20 U/L <32 [facility] MCV (mean corpuscular volume ) determinationOrdered By: Mary Fernandez on 07-15-2025 MCV (RBC) [Entitic vol] 89.5 fL 81-99 [facility] Mean corpuscular hemoglobin (MCH) determinationOrdered By: Mary Fernandez on 07-15-2025 MCH (RBC) [Entitic mass] 29.6 pg 27.0-32.0 [facility] Mean corpuscular hemoglobin concentration (MCHC) determinationOrdered By: Mary Fernandez on 07-15-2025 MCHC (RBC) [Mass/Vol] 33.1 g/dL 32-36 [facility] Mean platelet volume determi nationOrdered By: Mary Fernandez on 07-15-2025 Platelet mean volume (Bld) [Entitic vol] 10.9 fL 6.2-12.0 [facility] Monocyte percentageOrdered B y: Mary Fernandez on 07-15-2025 Monocytes/100 WBC (Bld) 7.8 % 0-10 [facility] Neutrophil percentageOrdered By: Mary Fernandez on 07-15-2025 Neutrophils/100 WBC (Bld) 63.1 % 47-70 [facility] Nucleated red blood cell per centageOrdered By: Mary Fernandez on 07-15-2025 Nucleated RBC/100 WBC (Bld) [Ratio] 0 % 0-5 [facility] Platelet countOrdered By: Dave Fernandez on 07-15-2025 Platelets (Bld) [#/Vol] 400 10*3/uL 150-450 [facility] Potassium measurement (mass/ volume)Ordered By: Mary Fernandez on 07-15-2025 Potassium (Unsp spec) [Mass/Vol] 3.6 mmol/L 3.3-5.1 [facility] RBC Auto (Bld) [#/Vol]Ordere d By: Mary Fernandez on 07-15-2025 RBC (Bld) [#/Vol] 4.66 10*6/uL 4.2-5.4 [facility] Serum creatinine measurement (mass/volume)Ordered By: Mary Fernandez on 07-15-2025 Creatinine [Mass/Vol] 0.77 mg/dL 0.70-1.20 [facility] Serum globulin measurementOr dered By: Mary Fernandez on 07-15-2025 Globulin (S) [Mass/Vol] 3.8 g/dL 2.2-4.2 [facility] Serum glucose measurement (m ass/volume)Ordered By: Mary Fernandez on 07-15-2025 Glucose [Mass/Vol] 101 mg/dL High 70-99 [facility] Serum or plasma alanine nunez otransferase (ALT) measurementOrdered By: Mary Fernandez on 07-15-2025 ALT [Catalytic activity/Vol] 18 U/L <35 [facility] Serum or plasma albumin efra urement (mass/volume)Ordered By: Mary Fernandez on 07-15-2025 Albumin [Mass/Vol] 4.1 g/dL 3.5-5.0 [facility] Serum or plasma albumin/glob ulin mass ratioOrdered By: Mary Fernandez on 07-15-2025 Albumin/Globulin [Mass ratio] 1.1 {ratio} 0.9-2.4 [facility] Serum or plasma alkaline brenda sphatase measurementOrdered By: Mary Fernandez on 07-15-2025 ALP [Catalytic activity/Vol] 65 U/L 35-104 [facility] Serum or plasma calcium efra urement (mass/volume)Ordered By: Mary Fernandez on 07-15-2025 Calcium [Mass/Vol] 9.7 mg/dL 7.6-11.0 [facility] Serum or plasma urea nitroge n measurement (mass/volume)Ordered By: Mary Fernandez on 07-15-2025 Urea nitrogen [Mass/Vol] 15 mg/dL 4-19 [facility] Sodium levelOrdered By: Vel Fernandez on 07-15-2025 Sodium [Moles/Vol] 138 mmol/L 133-145 [facility] Total proteinOrdered By: Henrry Fernandez on 07-15-2025 Protein [Mass/Vol] 7.9 g/dL 5.9-8.4 [facility] White blood cell (WBC) count Ordered By: Mary Fernandez on 07-15-2025 WBC (Bld) [#/Vol] 10.9 10*3/uL 4.4-11.0 [facility] Encounters Encounter Date Encounter Type Care Provider Facility Start: 07-15-2025 End: 07-15-[address] Mary Fernandez MD Work Phone: [facility] Dayna Gutiérrezswati [facility] Start: 07-15-2025 End: 07-15-[address] Mary Fernandez MD -Laboratory Dayna Wick [facility] Start: 07-15-2025 End: 07-15-2025 ambulatory Mary Fernandez Facility:[facility] Start: 11-10-2023 End: 11-10-2023 ambulatory [facility] Work Phone: Start: 11-10-2023 End: 11-10-2023 Patient encounter procedure [facility]-Outpatient Breast Imaging Work Phone: Procedures Date Procedure Procedure Detail Performing Clinician Start: 11-10-2023 Bilateral mammography Start: 11-10-2023 Ultrasonography of breast Payers Date Payer Category Payer Medicare [id number] 2025 Self-pay [id number] 2025 Unknown [id number] Unknown [facility] RAD[place] [id number] Unknown [id number] Social History Date Type Detail Facility Start: 08-17-2021 Tobacco smoking stat [facility] Unknown if ever smoked [facility] Start: 1975 Sex Assigned At Female [facility] Start: 08-17-2021 [facility] Sex Female [facility] Evaluation note Note Date & Type Note Facility Evaluation note No assessment information availa ble [facility] Work Phone: Reason for referral (narrative) Note Date & Type Note Facility Reason for referral (narrative) No reason for referral information available [facility] Work Phone: Chief Complaint and Reason for Visit Chief Complaint LUMP Advance Directives No Advanced Directives Records Found Advance Directive Response Recorded Date/ Time Living Will No August 17 6:42pm Power of Mail Deliverer No August 17, 2021 6:42pm Summary Purpose Family History No Family History Records Found Additional Source Comments Care Teams (unrecognized sec tion and content) Team Status: Active Member Role Status Dates Dr. Evelin Shipman MD Family Provider Active Dr. Mary Fernandez MD Primary Care Provider Active Team Status: Inactive Member Role Status Dates Dr. Mary Fernandez MD Primary Care Prov ider, Attending Provider, Referring Provider Active Team Status: Active Member Role/Relationship Status Dates Dr. Evelin Shipman MD Primary care physician Active Dr. Mary Fernandez MD Primary care physician Active Team Status: Inactive Member Role/Relationship Status Dates Dr. Mary Fernandez MD Primary care physician Active Start: July 15, 2025 End: July 15, 2025 Dr. Mary Fernandez MD Attending physician Active Start: July 15, 2025 End: July 15, 2025 Goals (unrecognized section and content) Goals may be documented in a n alternate sectionGoals may be documented in an alternate section INFORMATION SOURCE (unrecogn ized section and content) DATE CREATED AUTHOR 08/09/2025 [facility] FOR RECORDS PERTAINING TO PATIENTS WHO ARE OR HAVE BEEN ENROLLED IN A CHEMICAL DEPENDENCY/SUBSTANCEABUSE PROGRAM, SOME INFORMATION MAY BE OMITTED. This clinical summary was aggregated from multiple sources. Caution should be exercised in using it in the provision of clinical care. This summary normalizes information from multiple sources, and as a consequence, information in this document may materially change the coding, format and clinical context of patient data. In addition, data may be omitted in some cases. CLINICAL DECISIONS SHOULD BE BASED ON THE PRIMARY CLINICAL RECORDS. [employer] provides no warranty or guarantee of the accuracy or completeness of information in this document.
[2025-10-17 21:10] VITALS: BMI 54.0
[2025-10-17 21:12] VITALS: BP 125/79; PULSE 73; RESP 18; TEMP 36.7; O2SAT 98
[2025-10-18 05:51] VITALS: BP 122/60; PULSE 73; RESP 16; TEMP 36.7; O2SAT 97
[2025-10-18 07:33] LABS: Hematocrit 41.7 % (37-47); Hemoglobin 13.6 g/dL (12.0-15.0); Immature Granulocytes Count 0.160 X10^3/uL (0.0-0.0); Mean Corp Hgb Conc 32.6 g/dL (32-36); Mean Corpuscular Volume 89.5 fL (81-99); Mean Platelet Vol. 10.2 fl (6.2-12.0); NRBC Flagged by Analyzer 0 % (0-5); Platelet Count 477 K/mm3 (150-450); RBC Distribution Width CV 12.8 % (11.6-14.6); RBC Distribution Width SD 42.0 fl (35.1-43.9); Red Blood Count 4.66 M/mm3 (4.2-5.4); White Blood Count 13.2 K/mm3 (4.4-11.0)
[2025-10-18 07:58] LABS: AST(SGOT) 15 U/L (<=31); Alanine Aminotransfer ALT/SGPT 18 U/L (<=34); Albumin, Serum 3.8 g/dL (3.5-5.0); Alkaline Phosphatase 62 U/L (35-104); Anion Gap 15 (5-15); BUN 19 mg/dL (4-19); BUN/Creat Ratio 22.1 RATIO (10-20); Calcium,Total 9.4 mg/dL (7.6-11.0); Carbon Dioxide 24.2 mmol/L (21.0-32.0); Chloride 99 mmol/L (98-108); Estimated Creatinine Clearance 114.92 ml/min (50-250); Globulin 3.9 g/dL (2.2-4.2); Glucose 103 mg/dL (70-99); Potassium 2.8 mmol/L (3.3-5.1)
[2025-10-18 07:59] LABS: CRP 79.40 mg/L (0.0-3.0)
[2025-10-18 08:21] LABS: Prothrombin Time (Protime)PT. 14.0 SECONDS (11.7-14.9)
[2025-10-18] MEDS: FLU VACCINE 2025-26(6MOS UP) 45 MCG/0.5 ML SYRINGE IM (08:36)
[2025-10-18] MEDS: Potassium Chloride Oral Tablet 20 MEQ 40 MEQ PO (10:15)
[2025-10-18] MEDS: Potassium Chloride 10mEq/100mL 10 MEQ/100 ML IV.SOLN. 100 MEQ IV BOLUS ×2 (10:15→11:48)
[2025-10-18 11:05] LABS: Procalcitonin 0.06 ng/mL (<=0.10); Uric Acid 7.9 mg/dL (2.6-6.0)
--- NOTE | 2025-10-18 11:46 | CASEMGMT ---
CLEMENCIA MAX Assessment Face to Face with patient for initial transition planning/care coordination assessment. CLEMENCIA MAX introduced self and role at [facility], pt voices understanding. Pt is A&Ox4 and is resting comfortably in bed and is calm. Care providers, pharmacy, and demographics verified. Admitting dx: BL Foot and Ankle Pain LACE Strata: 1 PCP: Mary Fernandez Specialists: Denies Preferred Pharmacy: [facility] Insurance: [employer] [facility] A/B Prescription Benefit: Yes LNOK: Inocencio (H)Marilyn (Mother) Living Arrangements: Pt lives with her and adult son in a 2 story home with 5 steps to enter ADLs/IADLs: Reports indep at baseline but does not currently feel safe returning home in her condition Transportation: Self, family DME: Cane, FWW, BSC, W/C, Shower chair HHC/SNF: Denies hx of Pt?s goal: Return to PLOF Plan: TBD. At this time, the pt states that she does not feel safe returning home in her current condition because she says she is having too much difficulty with ambulation and that her works and that she will not be able to care for herself at home. Informed the pt that PT is ordered and will evaluate the pt to help see what she will best qualify for. Pt states understanding and denies further questions at this time. Report given to GOVERNMENT RELATIONS ANALYST CM. Yusra Stephens RN, CM
[2025-10-18 12:00] VITALS: BP 142/79; PULSE 72; RESP 16; TEMP 36.8; O2SAT 97
[2025-10-18 15:32] VITALS: BP 109/62; PULSE 66; RESP 16; TEMP 36.9; O2SAT 98
--- NOTE | 2025-10-18 17:15 | PCM.PN.HOSP ---
Reason for Visit Chief Complaint: Bilateral ankle pain, unable to ambulate Subjective Subjective Still having pain in ankles right greater than left. Reports it started with the left but is more so the right now and hurts if she dangles them or if she walks on them. Slight help with oral ibuprofen but not as much as medicine she was given yesterday in the ED. No other new or acute complaints Objective Data Objective Data Vital Signs: Vital Signs Temp Pulse Resp BP Pulse Ox O2 Del Method 98.4 F 66 16 109/62 98 Room Air 10/18/25 15:32 10/18/25 15:32 10/18/25 15:32 10/18/25 15:32 10/18/25 15:32 10/18/25 15:32 Oxygen Delivery Method Room Air Weight: 142.8 kg Body Mass Index (BMI) 54.0 Intake & Output: Intake and Output for Last 24 Hours 10/16/25 10/17/25 10/18/25 23:59 23:59 23:59 Intake Total 1000 / 1200 960 / 960 Output Total 300 / 300 Balance 1000 / 900 660 / 660 Lab / Micro Data 10/18/25 06:57 10/18/25 06:57 Labs: Laboratory Results - last 24 hr 10/17/25 20:00: WBC 17.3 H, RBC 4.87, Hgb 14.4, Hct 43.0, MCV 88.3, MCH 29.6, MCHC 33.5, RDW Std Deviation 40.6, RDW Coeff of Kavno 12.6, Plt Count 552 H, MPV 10.1, Immature Gran % (Auto) 1.000 H, Neut % (Auto) 70.7 H, Lymph % (Auto) 18.9 L, [place] % (Auto) 7.8, Eos % (Auto) 1.0, Baso % (Auto) 0.6, Absolute Neuts (auto) 12.2 H, Absolute Lymphs (auto) 3.27, Nucleated RBC % 0, Sodium 137, Potassium 3.4, Chloride 96 L, Carbon Dioxide 24.7, Anion Gap 17 H, BUN 20 H, Creatinine 1.07, Est GFR (MDRD) Non-Af 64, BUN/Creatinine Ratio 19.1, Glucose 96, Calcium 10.0, Total Bilirubin 0.48, AST 20, ALT 19, Alkaline Phosphatase 66, Total Protein 8.6 H, Albumin 4.1, Globulin 4.5 H, Albumin/Globulin Ratio 0.9 10/18/25 06:57: WBC 13.2 H, RBC 4.66, Hgb 13.6, Hct 41.7, MCV 89.5, MCH 29.2, MCHC 32.6, RDW Std Deviation 42.0, RDW Coeff of Kavon 12.8, Plt Count 477 H, MPV 10.2, Immature Gran % (Auto) 1.200 H, Neut % (Auto) 65.8, Lymph % (Auto) 21.5, [place] % (Auto) 8.1, Eos % (Auto) 2.2, Baso % (Auto) 1.2 H, Absolute Neuts (auto) 8.7 H, Absolute Lymphs (auto) 2.84, Nucleated RBC % 0, ESR 50 H, PT 14.0, INR 1.1, Sodium 138, Potassium 2.8 L, Chloride 99, Carbon Dioxide 24.2, Anion Gap 15, BUN 19, Creatinine 0.85, Estim Creat Clear Calc 114.92, Est GFR (MDRD) Non-Af 84, BUN/Creatinine Ratio 22.1 H, Glucose 103 H, Uric Acid 7.9 H, Calcium 9.4, Total Bilirubin 0.34, AST 15, ALT 18, Alkaline Phosphatase 62, C-React Prot Ext Range 79.40 H, Total Protein 7.7, Albumin 3.8, Globulin 3.9, Albumin/Globulin Ratio 1.0, Procalcitonin 0.06, Rheumatoid Factor < 10.0, RYAN-1 Antibody TNP, Scl-70 Scleroderma Ab TNP, Antichromatin Antibodies TNP, Centromere B Antibody TNP Radiography Diagnostic Testing: Radiology Impression Ankle X-Ray 10/17/25 17:36 IMPRESSION: No acute or aggressive osseous abnormality. 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 Reading Location: [id number] Foot X-Ray 10/17/25 17:36 IMPRESSION: No acute or aggressive osseous abnormality. 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 Reading Location: [facility] Ankle X-Ray 10/17/25 17:45 IMPRESSION: No acute or aggressive osseous abnormality. Reading Location: [facility] Foot X-Ray 10/17/25 17:45 IMPRESSION: No acute or aggressive osseous abnormality. Reading Location: [facility] Physical Exam Narrative General: Alert, oriented, no apparent distress HEENT: Atraumatic, normocephalic Eyes: Anicteric, normal conjunctiva, extraocular movements grossly intact Neck: Supple Respiratory: Clear to auscultation bilaterally, normal respiratory effort Cardiovascular: Regular rate and rhythm GI: Soft, nontender, nondistended Extremities: No significant peripheral pitting Musculoskeletal: Moving all extremities but notes pain with flexion of ankles, some generalized tenderness Neuro: No overt focal neurological deficits Skin: Has some eczema on inner portion of right foot Psych: Cooperative Assessment & Plan Assessment/Plan (1) Bilateral ankle pain: PLAN: Plan # Bilateral ankle pain - Rheumatoid factor negative despite history do not think this is a rheumatoid flare - Pro-Eliecer negative and white count came down despite no antibiotic treatment so do not think this is bilateral septic joints - Did have elevated CRP at 79 and ESR at 50 - Uric acid is 7.9, is possible this is gout - Schedule NSAIDs -Will add PPI - Supportive care - Appreciate podiatry recommendations/evaluation #Hypokalemia -Replace -Repeat in the AM #Morbid obesity -BMI documented as 54 kg/m? at time of admission -Complicates treatment, prognosis, outcomes -Recommend weight loss and lifestyle changes #Hypertension - On atenolol?chlorthalidone at home, starting scheduled NSAIDs and patient hypokalemic so holding chlorthalidone -BP systolic only 109, allowing for pain control #DVT ppx: Lovenox subcu Dora Del Cid MD Charges/Coding Visit Charges Inpatient E&M: 21227 Subs Hosp L2
[2025-10-18 21:00] VITALS: BP 125/54; PULSE 58; RESP 18; TEMP 35.9; O2SAT 95
[2025-10-19 05:00] VITALS: BP 138/66; PULSE 60; RESP 16; TEMP 35.5; O2SAT 98
[2025-10-19 06:41] LABS: Hematocrit 39.7 % (37-47); Hemoglobin 12.9 g/dL (12.0-15.0); Immature Granulocytes Count 0.130 X10^3/uL (0.0-0.0); Mean Corp Hgb Conc 32.5 g/dL (32-36); Mean Corpuscular Volume 89.4 fL (81-99); Mean Platelet Vol. 10.1 fl (6.2-12.0); NRBC Flagged by Analyzer 0 % (0-5); Platelet Count 407 K/mm3 (150-450); RBC Distribution Width CV 12.6 % (11.6-14.6); RBC Distribution Width SD 41.8 fl (35.1-43.9); Red Blood Count 4.44 M/mm3 (4.2-5.4); White Blood Count 8.1 K/mm3 (4.4-11.0)
[2025-10-19 07:14] LABS: Anion Gap 14 (5-15); BUN 18 mg/dL (4-19); BUN/Creat Ratio 20.4 RATIO (10-20); CRP 62.90 mg/L (0.0-3.0); Calcium,Total 9.4 mg/dL (7.6-11.0); Carbon Dioxide 24.8 mmol/L (21.0-32.0); Chloride 99 mmol/L (98-108); Estimated Creatinine Clearance 108.54 ml/min (50-250); Glucose 93 mg/dL (70-99); Potassium 3.0 mmol/L (3.3-5.1)
[2025-10-19 08:46] VITALS: BP 115/59; PULSE 60; RESP 18; TEMP 36.6; O2SAT 98
[2025-10-19] MEDS: Potassium Chloride 10mEq/100mL 10 MEQ/100 ML IV.SOLN. 100 MEQ IV BOLUS ×2 (08:50→10:45)
[2025-10-19] MEDS: Potassium Chloride Oral Tablet 20 MEQ 40 MEQ PO (08:52)
--- NOTE | 2025-10-19 11:46 | PN.HOSP_ITS ---
Reason for Visit Chief Complaint: Bilateral ankle pain, unable to ambulate Subjective Subjective Does not feel she has had significant benefit from scheduled NSAIDs, and agreeable to trialing steroids. Reports pain is a little bit better but still difficulty bearing weight Objective Data Objective Data Vital Signs: Vital Signs Temp Pulse Resp BP Pulse Ox O2 Del Method 97.8 F 60 18 115/59 L 98 Room Air 10/19/25 08:46 10/19/25 08:46 10/19/25 08:46 10/19/25 08:46 10/19/25 08:46 10/19/25 10:00 Oxygen Delivery Method Room Air Weight: 142.8 kg Body Mass Index (BMI) 54.0 Intake & Output: Intake and Output for Last 24 Hours 10/17/25 10/18/25 10/19/25 23:59 23:59 23:59 Intake Total 1000 / 1200 960 / 1560 700 / 700 Output Total 300 / 300 Balance 1000 / 900 660 / 1260 700 / 700 Lab / Micro Data 10/19/25 05:57 10/19/25 05:57 Labs: Laboratory Results - last 24 hr 10/18/25 06:57: Cycl Citrul Peptide IgG 9 10/19/25 05:57: WBC 8.1, RBC 4.44, Hgb 12.9, Hct 39.7, MCV 89.4, MCH 29.1, MCHC 32.5, RDW Std Deviation 41.8, RDW Coeff of Kavon 12.6, Plt Count 407, MPV 10.1, I mmature Gran % (Auto) 1.600 H, Neut % (Auto) 64.5, Lymph % (Auto) 16.8 L, [place] % (Auto) 11.8 H, Eos % (Auto) 4.1, Baso % (Auto) 1.2 H, Absolute Neuts (auto) 5.3, Absolute Lymphs (auto) 1.37, Nucleated RBC % 0, ESR 46 H, Sodium 137, Potassium 3.0 L, Chloride 99, Carbon Dioxide 24.8, Anion Gap 14, BUN 18, Creatinine 0.90, Estim Creat Clear Calc 108.54, Est GFR (MDRD) Non-Af 79, BUN/Creatinine Ratio 20.4 H, Glucose 93, Calcium 9.4, C-React Prot Ext Range 62.90 H Physical Exam Narrative General: Alert, oriented, no apparent distress HEENT: Atraumatic, normocephalic Eyes: Anicteric, normal conjunctiva, extraocular movements grossly intact Neck: Supple Respiratory: Clear to auscultation bilaterally, normal respiratory effort Cardiovascular: Regular rate and rhythm GI: Soft, nontender, nondistended Extremities: No significant peripheral pitting Musculoskeletal: Moving all extremities but notes pain with flexion of ankles, some generalized tenderness Neuro: No overt focal neurological deficits Skin: Has some eczema on inner portion of right foot which is still present Psych: Cooperative Assessment & Plan Assessment/Plan (1) Bilateral ankle pain: PLAN: Plan # Bilateral ankle pain - Rheumatoid factor negative despite history do not think this is a rheumatoid flare - Pro-Eliecer negative and white count came down despite no antibiotic treatment so do not think this is bilateral septic joints - Did have elevated CRP at 79 and ESR at 50 - Uric acid is 7.9, is possible this is gout - Schedule NSAIDs -Will add PPI - Supportive care - Appreciate podiatry recommendations/evaluation -10/19: Had slight benefit with scheduled NSAIDs but not significantly so, suspect gout flare, discussed with Dr. Bills, will start steroids. PT/OT also evaluated. Given she has received NSAIDs and she is started on prednisone will increase PPI temporarily #Hypokalemia -Replace -Repeat in the AM -10/19: Further replacement ordered #Morbid obesity -BMI documented as 54 kg/m? at time of admission -Complicates treatment, prognosis, outcomes -Recommend weight loss and lifestyle changes -10/19: On a cardiac, calorie controlled diet #Hypertension - On atenolol?chlorthalidone at home, starting scheduled NSAIDs and patient hypokalemic so holding chlorthalidone -BP systolic only 109, allowing for pain control -10/19: Most recent BP 115/59, continue atenolol #DVT ppx: Lovenox subcu Dora Del Cid MD Charges/Coding Visit Charges Inpatient E&M: 73137 Subs Hosp L2
[2025-10-19] MEDS: Senna/Docusate Sodium 1 Tablet 2 TABLET PO ×2 (12:17→22:06)
--- NOTE | 2025-10-19 12:19 | CON.PCM_ITS ---
Assessment & Plan Assessment/Plan (1) Acute gout: (2) Bilateral ankle pain: (3) Bilateral foot pain: PLAN: Plan Patient seen and evaluated with present. I did review her radiographs of the right ankle, right foot, left ankle, and left foot which were negative for acute osseous pathology. There is some moderate degenerative changes appreciated about the tarsometatarsal joint, naviculocuneiform joint, and talonavicular joint of the right foot. Reviewed laboratory findings which did demonstrate elevated white count of 17.3, which is likely reactive in the setting of elevated uric acid at 7.9. WBC did trend down and currently within normal limits. Currently on no IV antibiotic. Did have elevated ESR of 50 and CRP of 79.40. Both are trending down slightly today at 46 and 62.9 respectively. She had previously trialed naproxen with very little to no improvement. Currently now on oral steroid Dosepak, will continue to monitor for improvement. Examination did demonstrate mild edema of bilateral ankles with right slightly more than left. There is diffuse pain about the ankle both medial lateral and anterior in addition to pain with range of motion with right greater than left. I did discuss with patient previous diet which could precipitate gout attack. Brief diet guide was given however more detailed diet plan will be provided to the patient. Discussed with her continuing on the current steroid regimen with elevation of the lower extremities to improve edema and discomfort. Following this we will reevaluate for improvement and if necessary MRI may be ordered of the right ankle for further evaluation with potential tendinitis as differential. Did discuss possibility of long-term therapeutic treatment with allopurinol if additional gout flare does occur. May continue weightbearing as tolerated. PT is continuing to follow and work with patient to aid in strengthening lower extremities. Patient does state she may end up at a skilled facility once discharged. If she is discharged she is to continue to follow in office with podiatry for continued care if pain does not improve. Please do not hesitate to reach out with any questions or concerns Will continue to follow and monitor for improvement HPI Consult Data Date of Consult: 10/19/25 HPI Narrative Reason for Consultation: Bilateral ankle pain HPI Narrative: ANAMARIA SHARP, is a 50 F who presents to [facility] through ER for bilateral ankle pain which started roughly around Thanksgiving and the left ankle and progressed into the right ankle with right ankle more painful. She does state that with progressing pain the ankle became more difficult to bear weight on to which her would have to assist her. 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 Denies calf pain, shortness of breath, chills, fevers. Currently on Zepbound and has lost roughly 30 pounds over the last several months. When presenting to the ED the evening of 10/17/2025 she did have elevated white count of 17.3 and no open wounds. Radiographs were obtained of the right ankle and foot and left ankle and foot which were negative for acute osseous pathology. She denies injury/fall. Denies any further trauma or incident prior to onset of bilateral ankle pain. Podiatry was consulted for further evaluation of her bilateral ankle pain. [facility] Medical History (Updated 10/19/25 @ 12:[address] Aram Bills, EDER) HTN (hypertension) Home Medications ?Medication ?Instructions ?Recorded ?Last Taken ?Type atenolol 50 mg-chlorthalidone 25 1 tab PO DAILY 10/17/25 History mg tablet ibuprofen 200 mg tablet (Advil) 400 mg PO Q6H PRN feve r or pain 10/17/25 10/17/25 History tirzepatide (weight loss) 7.5 7.5 mg subcut QWEEK 10/0310/07/25 History mg/0.5 mL subcutaneous pen injector (Zepbound) Allergy/AdvReac Type Severity Reaction Status Date / Time morphine Allergy Hives Verified 10/17/25 11:45 Sulfa (Sulfonamide AdvReac Vomiting Verified 10/17/25 11:45 Antibiotics) Surgical History Tubal ligation status Total knee replacement status History of hip replacement Social History Smoking Status: Former smoker ROS Constitutional Constitutional: Denies body ache(s), chills, fatigue or fever(s) Eyes Eyes: Denies diplopia, erythema or loss of vision ENT HEENT: Denies dizziness, headache(s), nasal congestion or rhinorrhea Cardiovascular Cardiovascular: Denies chest pain, claudication or palpitations Respiratory/Chest Respiratory/Chest: Denies dyspnea, shortness of breath at rest or wheezing Gastrointestinal Gastrointestinal: Denies abdominal pain, constipation, diarrhea, nausea or vomiting Genitourinary Genitourinary: Denies dysuria, hematuria or urinary urgency Musculoskeletal Musculoskeletal: Denies joint pain, joint stiffness or joint swelling Integumentary Integumentary: Denies lesions, pruritus or rash Neurologic Neurologic: Denies dizziness, numbness or seizures Psychiatric Psychiatric: Denies anxiety or depression Endocrine Endocrinology: Denies polydipsia, polyphagia or polyuria Hematologic/Lymphatic Hematologic/Lymphatic: Denies easy bleeding or easy bruising Allergic/Immunologic Allergic/Immunologic: Denies wheezing Physical Exam Const alert, oriented x3 and no apparent distress General Appearance: cooperative HEENT normocephalic Eyes General Eye: normal appearance of both eyes Neck General: normal visual inspection Lymph Lymphatic: no lymphadenopathy noted and no lymphedema noted Resp normal respiratory effort Cardio regular rate and regular rhythm Extremity no calf tenderness Extremity Narrative: Vascular: DP and PT pulses palpable to bilateral foot. CFT is brisk to digits of both feet. Normal temperature gradient. Hair growth is present to digit. Neurologic: Epicritic sensation intact to foot without focal deficit noted Dermatologic: No ecchymosis, no erythema, no lesions to bilateral foot. There is diffuse mild nonpitting edema about the ankle and foot with right slightly more than left. No increased warmth to touch. Skin otherwise unremarkable Musculoskeletal: Muscle strength is 5/5 and age-appropriate. There is diffuse pain to palpation about the medial ankle, anterior ankle, lateral ankle, and distal tibiofibular joint bilaterally. Painful on right more than left. Pain with range of motion of the right ankle in dorsiflexion/plantarflexion, inversion/eversion. Negative anterior drawer test of the right ankle. There is palpable dorsal osteophyte at the tarsometatarsal joint at the dorsal lateral foot secondary to degenerative arthritic changes. Skin no rashes or lesions noted Neuro moves all extremities Lab / Micro Data 10/19/25 05:57 10/19/25 05:57 Labs: Laboratory Results - last 24 hr 10/18/25 06:57: Cycl Citrul Peptide IgG 9 10/19/25 05:57: WBC 8.1, RBC 4.44, Hgb 12.9, Hct 39.7, MCV 89.4, MCH 29.1, MCHC 32.5, RDW Std Deviation 41.8, RDW Coeff of Kavon 12.6, Plt Count 407, MPV 10.1, I mmature Gran % (Auto) 1.600 H, Neut % (Auto) 64.5, Lymph % (Auto) 16.8 L, [place] % (Auto) 11.8 H, Eos % (Auto) 4.1, Baso % (Auto) 1.2 H, Absolute Neuts (auto) 5.3, Absolute Lymphs (auto) 1.37, Nucleated RBC % 0, ESR 46 H, Sodium 137, Potassium 3.0 L, Chloride 99, Carbon Dioxide 24.8, Anion Gap 14, BUN 18, Creatinine 0.90, Estim Creat Clear Calc 108.54, Est GFR (MDRD) Non-Af 79, BUN/Creatinine Ratio 20.4 H, Glucose 93, Calcium 9.4, C-React Prot Ext Range 62.90 H
[2025-10-19 14:09] LABS: ANTINUCLEAR ANTIBODIES DIRECT Negative (Negative)
[2025-10-19 15:30] VITALS: BP 111/53; PULSE 64; RESP 18; TEMP 36.6; O2SAT 96
[2025-10-19 22:00] VITALS: BP 143/93; PULSE 80; RESP 18; TEMP 36.6; O2SAT 95
[2025-10-20 06:00] VITALS: BP 118/62; PULSE 73; RESP 18; TEMP 36.4; O2SAT 96
[2025-10-20 06:11] LABS: Hematocrit 37.4 % (37-47); Hemoglobin 12.6 g/dL (12.0-15.0); Mean Corp Hgb Conc 33.7 g/dL (32-36); Mean Corpuscular Volume 87.4 fL (81-99); Mean Platelet Vol. 10.1 fl (6.2-12.0); Platelet Count 427 K/mm3 (150-450); RBC Distribution Width CV 12.6 % (11.6-14.6); RBC Distribution Width SD 40.2 fl (35.1-43.9); Red Blood Count 4.28 M/mm3 (4.2-5.4); White Blood Count 13.8 K/mm3 (4.4-11.0)
[2025-10-20 06:39] LABS: Anion Gap 15 (5-15); BUN 22 mg/dL (4-19); BUN/Creat Ratio 24.7 RATIO (10-20); CRP 52.90 mg/L (0.0-3.0); Calcium,Total 9.6 mg/dL (7.6-11.0); Carbon Dioxide 21.7 mmol/L (21.0-32.0); Chloride 98 mmol/L (98-108); Estimated Creatinine Clearance 109.76 ml/min (50-250); Glucose 106 mg/dL (70-99); Potassium 3.6 mmol/L (3.3-5.1)
[2025-10-20 07:45] VITALS: BP 123/48; PULSE 70; RESP 18; TEMP 36.6; O2SAT 98
[2025-10-20] MEDS: Senna/Docusate Sodium 1 Tablet 2 TABLET PO ×2 (07:49→22:25)
--- NOTE | 2025-10-20 10:02 | CASEMGMT ---
Discharge Planning A list of?SNF providers including quality and resource use data and consistent with the patient's preferred geographic region, medical needs, and insurance network was created in [facility]Port Guide.? This list was provided to the RN WINTER. Sarah Mckeon, Discharge Planning Asst.
--- NOTE | 2025-10-20 11:13 | PCM.PN.HOSP ---
Reason for Visit Chief Complaint: Bilateral ankle pain, unable to ambulate Subjective Subjective Saw patient at bedside this morning. Patient was sitting up in bed comfortably, conversing normally, in no acute distress. Notes that her foot/ankle pain and swelling does feel slightly improved today compared to yesterday. She does continue to have significant pain with weightbearing and ambulation. No other acute concerns at this time. Objective Data Objective Data Vital Signs: Vital Signs Temp Pulse Resp BP Pulse Ox O2 Del Method 97.8 F 70 18 123/48 H 98 Room Air 10/20/25 07:45 10/20/25 07:45 10/20/25 07:45 10/20/25 07:45 10/20/25 07:45 10/20/25 08:00 Oxygen Delivery Method Room Air Weight: 142.8 kg Body Mass Index (BMI) 54.0 Intake & Output: Intake and Output for Last 24 Hours 10/18/25 10/19/25 10/20/25 23:59 23:59 23:59 Intake Total 960 / 1560 1800 / 2350 850 / 850 Output Total 300 / 300 750 / 750 Balance 660 / 1260 1050 / 1600 850 / 850 Lab / Micro Data 10/21/25 05:59 10/21/25 05:59 Labs: Laboratory Results - last 24 hr 10/18/25 06:57: [facility]RA Screen Negative, SS-A/Ro IgG Antibody TNP, SS-B/La IgG Antibody TNP, Double Strand DNA Ab TNP 10/20/25 05:28: WBC 13.8 H, RBC 4.28, Hgb 12.6, Hct 37.4, MCV 87.4, MCH 29.4, MCHC 33.7, RDW Std Deviation 40.2, RDW Coeff of Kavon 12.6, Plt Count 427, MPV 10.1, ESR 50 H, Sodium 135, Potassium 3.6, Chloride 98, Carbon Dioxide 21.7, Anion Gap 15, BUN 22 H, Creatinine 0.89, Estim Creat Clear Calc 109.76, Est GFR (MDRD) Non-Af 80, BUN/Creatinine Ratio 24.7 H, Glucose 106 H, Calcium 9.6, C-React Prot Ext Range 52.90 H Patient's Goals Of Care - F/U Goals Reviewed Goals of care reviewed with patient: NA-No significant change in clinical Status /major procedure scheduled Physical Exam Const alert, oriented x3 and no apparent distress Constitutional Narrative: Middle-age female, class III obesity, sitting back comfortably in bed, conversing normally, in no acute distress. General Appearance: cooperative and comfortable HEENT normocephalic, head/scalp atraumatic, hearing grossly normal bilaterally, nasal mucous membranes and turbinates normal and moist oral mucous membranes Eyes PERRL, EOMs intact bilaterally and conjunctivae normal Neck full ROM Chest inspection of chest normal Resp normal respiratory effort, normal air movement, no use of accessory muscles and clear to auscultation bilaterally Cardio regular rate, regular rhythm, no murmurs and peripheral pulses 2+ throughout GI normal to inspection, nondistended, normoactive bowel sounds, soft to palpation, non-tender and non-distended Back/Spine normal ROM Extremity Extremity Narrative: Mild edema of bilateral ankles. Skin no rashes or lesions noted Psych mental status grossly normal Assessment & Plan Assessment/Plan (1) Acute gout: (2) Bilateral ankle pain: PLAN: Plan Patient is a 50-year-old female who presented to [facility] ED on 10/17/2025 with bilateral ankle/foot pain and difficulty with ambulation. 1. Bilateral ankle/foot pain and difficulty with ambulation ? Podiatry following. PT/OT/case management following. Bilateral foot and ankle x-rays on admit with nonspecific generalized soft tissue swelling, no other abnormalities noted. CRP 79, ESR 50. Uric acid 7.9. RF factor negative. Per podiatry, highest concern is for gout at this time. Initially treated with NSAIDs with minimal improvement so initiated on prednisone 40 mg daily on 10/22 and patient has had some improvement. Inflammatory markers are trending down. Patient has had poor therapy scores so tentative plan is for SNF on discharge. If patient continues to improve, suspect she will be medically ready for discharge tomorrow. Will need close outpatient follow-up and recommend initiating allopurinol once steroid course is completed. 2. Reported history of RA ? Patient reports history of juvenile rheumatoid arthritis, has not had significant issues in adulthood. RF factor negative on admit as above. However, cannot rule out RA as contributing factor at this time. Continue treatment with steroids as above. 3. Hypokalemia ? Potassium 3.0 on admit. Replating as needed. 4. Hypertension ? Has been normotensive during this hospitalization. Continue home atenolol. Will continue to hold home chlorthalidone for now. 5. Class III obesity ? BMI 54 on admit. Complicates hospital course and care. Patient is on tirzepatide and reports approximately 30 pound weight loss over the past 3 months. Continue tirzepatide in the outpatient setting and encouraged continued dietary and lifestyle modifications. DVT prophylaxis: Lovenox twice daily CODE STATUS: Full code, verified Expected disposition: Likely SNF, 1 to 2 days Total clinical time spent by myself addressing the patient's medical issues, reviewing all the data, and collaborating with patient's care team: 37 minutes. Charges/Coding Visit Charges Inpatient E&M: 42796 Subs Hosp L2
--- NOTE | 2025-10-20 13:04 | CASEMGMT ---
Addendum entered by Bridget Dunaway 10/20/25 15:09: CLEMENCIA MAX to inquire about patient's preference for SNF at discharge. Patient states she reviewed list: 1 [facility], 2. [facility], 3. [facility], 4. [facility], 5. [facility]. Per hospitalist, patient is medically ready for discharge tomorrow. CLEMENCIA MAX updated DC Ward Service Supervisor to send referral to [facility]. CM will continue to follow this patient and plan for a safe discharge. Original Note: RN WINTER in to discuss discharge needs, at bedside. RN CM reviewed progress with therapy and discuss SNF for skilled therapy at discharge. Patient is agreeable to SNF at discharge. CLEMENCIA MAX provided patient with SNF list, patient and to review and provide top 5 preferences. Patient and voiced understanding. Patient and had no further questions or concerns.
[2025-10-20 15:01] VITALS: BP 117/48; PULSE 66; RESP 18; TEMP 36.4; O2SAT 97
--- NOTE | 2025-10-20 15:36 | CASEMGMT ---
Addendum entered by Sarah Mckeon 10/21/25 12:16: [facility] declined and [facility] accepted. RN CM updated. Addendum entered by Sarah Mckeon 10/21/25 08:16: [facility] has declined. Addendum entered by Sarah Mckeon 10/20/25 16:12: [facility] declined. Pt updated and was agreeable to referral being sent to her next 3 choices. Referral sent via [facility] to [facility], [facility], and [facility]. Original Note: Discharge Planning Referral sent via [facility] to [facility]. Sarah Mckeon DC Planning Asst.
[2025-10-20 21:18] VITALS: BP 124/78; PULSE 68; RESP 18; TEMP 36.6; O2SAT 94
[2025-10-21] MEDS: hydrOXYzine PAM 25 MG Capsule PO (01:07)
[2025-10-21 03:47] VITALS: BP 108/58; PULSE 54; RESP 18; TEMP 36.6; O2SAT 98
[2025-10-21 06:18] LABS: Hematocrit 36.4 % (37-47); Hemoglobin 12.4 g/dL (12.0-15.0); Mean Corp Hgb Conc 34.1 g/dL (32-36); Mean Corpuscular Volume 87.3 fL (81-99); Mean Platelet Vol. 9.9 fl (6.2-12.0); Platelet Count 414 K/mm3 (150-450); RBC Distribution Width CV 12.7 % (11.6-14.6); RBC Distribution Width SD 40.6 fl (35.1-43.9); Red Blood Count 4.17 M/mm3 (4.2-5.4); White Blood Count 12.6 K/mm3 (4.4-11.0)
[2025-10-21 06:56] LABS: Anion Gap 13 (5-15); BUN 23 mg/dL (4-19); BUN/Creat Ratio 25.9 RATIO (10-20); Calcium,Total 9.2 mg/dL (7.6-11.0); Carbon Dioxide 24.3 mmol/L (21.0-32.0); Chloride 101 mmol/L (98-108); Estimated Creatinine Clearance 111.01 ml/min (50-250); Glucose 96 mg/dL (70-99); Potassium 3.2 mmol/L (3.3-5.1)
[2025-10-21 08:17] VITALS: BP 134/68; PULSE 53; RESP 16; TEMP 36.8; O2SAT 98
[2025-10-21] MEDS: Senna/Docusate Sodium 1 Tablet 2 TABLET PO ×2 (08:19→20:10)
[2025-10-21] MEDS: Potassium Chloride Oral Tablet 20 MEQ 60 MEQ PO (08:23)
[2025-10-21 08:34] LABS: Magnesium 1.9 mg/dL (1.5-2.2)
--- NOTE | 2025-10-21 11:09 | PN.HOSP_ITS ---
Reason for Visit Chief Complaint: Bilateral ankle pain, unable to ambulate Subjective Subjective Saw patient bedside this morning. Patient was sitting at the edge of the bed and PT and OT were about to work with her. She notes continued improvement in swelling and discomfort in her ankles and feet bilaterally. Notes that her pain and discomfort with weightbearing and ambulation are slightly improved. No other new concerns this morning. Objective Data Objective Data Vital Signs: Vital Signs Temp Pulse Resp BP Pulse Ox O2 Del Method 98.2 F 53 L 16 134/68 H 98 Room Air 10/21/25 08:17 10/21/25 08:17 10/21/25 08:17 10/21/25 08:17 10/21/25 08:17 10/21/25 10:25 Oxygen Delivery Method Room Air Weight: 142.8 kg Body Mass Index (BMI) 54.0 Intake & Output: Intake and Output for Last 24 Hours 10/19/25 10/20/25 10/21/25 23:59 23:59 23:59 Intake Total 1800 / 2350 2049 800 / 800 Output Total 750 / 750 1300 / 1300 Balance 1050 / 1600 2049 -500 / -500 Lab / Micro Data 10/21/25 05:59 10/21/25 05:59 Labs: Laboratory Results - last 24 hr 10/20/25 05:28: Hemoglobin A1c 5.7 10/21/25 05:59: WBC 12.6 H, RBC 4.17 L, Hgb 12.4, Hct 36.4 L, MCV 87.3, MCH 29.7, MCHC 34.1, RDW Std Deviation 40.6, RDW Coeff of Kavon 12.7, Plt Count 414, MPV 9.9, Sodium 138, Potassium 3.2 L, Chloride 101, Carbon Dioxide 24.3, Anion Gap 13, BUN 23 H, Creatinine 0.88, Estim Creat Clear Calc 111.01, Est GFR (MDRD) Non-Af 81, BUN/Creatinine Ratio 25.9 H, Glucose 96, Calcium 9.2, Phosphorus 3.1, Magnesium 1.9 Patient's Goals Of Care - F/U Goals Reviewed Goals of care reviewed with patient: NA-No significant change in clinical Status /major procedure scheduled Physical Exam Const alert, oriented x3 and no apparent distress Constitutional Narrative: Middle-age female, class III obesity, sitting back comfortably in bed, conversing normally, in no acute distress. General Appearance: cooperative and comfortable HEENT normocephalic, head/scalp atraumatic, hearing grossly normal bilaterally, nasal mucous membranes and turbinates normal and moist oral mucous membranes Eyes PERRL, EOMs intact bilaterally and conjunctivae normal Neck full ROM Chest inspection of chest normal Resp normal respiratory effort, normal air movement, no use of accessory muscles and clear to auscultation bilaterally Cardio regular rate, regular rhythm, no murmurs and peripheral pulses 2+ throughout GI normal to inspection, nondistended, normoactive bowel sounds, soft to palpation, non-tender and non-distended Back/Spine normal ROM Extremity Extremity Narrative: Mild edema of bilateral ankles, improving. Skin no rashes or lesions noted Psych mental status grossly normal Assessment & Plan Assessment/Plan (1) Acute gout: (2) Bilateral ankle pain: PLAN: Plan Patient is a 50-year-old female who presented to [facility] ED on 10/17/2025 with bilateral ankle/foot pain and difficulty with ambulation. 1. Bilateral ankle/foot pain and difficulty with ambulation ? Podiatry following. PT/OT/case management following. Bilateral foot and ankle x-rays on admit with nonspecific generalized soft tissue swelling, no other abnormalities noted. CRP 79, ESR 50. Uric acid 7.9. RF factor negative. Per podiatry, highest concern is for gout at this time. Initially treated with NSAIDs with minimal improvement so initiated on prednisone 40 mg daily on 10/19 and patient has had moderate improvement. Inflammatory markers are trending down. Patient has had borderline therapy scores so plan is for SNF on discharge. Patient medically ready for discharge on 10/21, awaiting placement. Will need close outpatient follow-up and can consider initiating allopurinol once steroid course is completed. 2. Reported history of RA ? Patient reports history of juvenile rheumatoid arthritis, has not had significant issues in adulthood. RF factor negative on admit as above. However, cannot rule out RA as contributing factor at this time. Continue treatment with steroids as above. 3. Hypokalemia ? Potassium 3.0 on admit. Mag and Phos normal. Repleting as needed. 4. Hypertension ? Has been normotensive during this hospitalization. Continue home atenolol. Will continue to hold home chlorthalidone for now. 5. Class III obesity ? BMI 54 on admit. Complicates hospital course and care. Patient is on tirzepatide and reports approximately 30 pound weight loss over the past 3 months. Continue tirzepatide in the outpatient setting and encouraged continued dietary and lifestyle modifications. DVT prophylaxis: Lovenox twice daily CODE STATUS: Full code, verified Expected disposition: SNF, medically ready for discharge on 10/21, awaiting placement Total clinical time spent by myself addressing the patient's medical issues, reviewing all the data, and collaborating with patient's care team: 36 minutes. Charges/Coding Visit Charges Inpatient E&M: 72725 Subs Hosp L2
--- NOTE | 2025-10-21 12:32 | CASEMGMT ---
CLEMENCIA MAX in to update patient that [facility] will have a private room for her and [facility] were the only facility that was able to accept her. Patient is agreeable to [facility] at discharge. Patient had no further questions or concerns. CLEMENCIA MAX updated DC [employer] to ask Rosangela to submit for precert. Per hospitalist patient is medically ready for discharge.
--- NOTE | 2025-10-21 12:46 | CASEMGMT ---
Discharge Planning Per Rosangela REAGAN CM is foc. [facility] request to submit for precert. Sarah Mckeon DC Planning Asst.
[2025-10-21] MEDS: TIRZEPATIDE 7.5 MG/0.5 ML PEN.INJCTR SQ (12:51)
--- NOTE | 2025-10-21 13:05 | PN_ITS ---
Subjective Subjective Patient seen this afternoon resting in bed with feet elevated. Does report since starting the oral steroid her swelling has improved and pain is also improving. Still having trouble at times with bearing weight but it is becoming more manageable. Denies other complaints at this time. Objective Data Objective Data Vital Signs: Vital Signs Temp Pulse Resp BP Pulse Ox O2 Del Method 98.2 F 53 L 16 134/68 H 98 Room Air 10/21/25 08:17 10/21/25 08:17 10/21/25 08:17 10/21/25 08:17 10/21/25 08:17 10/21/25 10:25 Oxygen Delivery Method Room Air Weight: 142.8 kg Body Mass Index (BMI) 54.0 Intake & Output: Intake and Output for Last 24 Hours 10/19/25 10/20/25 10/21/25 23:59 23:59 23:59 Intake Total 1800 / 2350 2049 1600 / 1600 Output Total 750 / 750 2400 / 2400 Balance 1050 / 1600 2049 -800 / -800 Lab / Micro Data 10/21/25 05:59 10/21/25 05:59 Labs: Laboratory Results - last 24 hr 10/21/25 05:59: WBC 12.6 H, RBC 4.17 L, Hgb 12.4, Hct 36.4 L, MCV 87.3, MCH 29.7, MCHC 34.1, RDW Std Deviation 40.6, RDW Coeff of Kavon 12.7, Plt Count 414, MPV 9.9, Sodium 138, Potassium 3.2 L, Chloride 101, Carbon Dioxide 24.3, Anion Gap 13, BUN 23 H, Creatinine 0.88, Estim Creat Clear Calc 111.01, Est GFR (MDRD) Non-Af 81, BUN/Creatinine Ratio 25.9 H, Glucose 96, Calcium 9.2, Phosphorus 3.1, Magnesium 1.9 Physical Exam Const alert, oriented x3 and no apparent distress General Appearance: cooperative HEENT normocephalic Eyes General Eye: normal appearance of both eyes Neck General: normal visual inspection Lymph Lymphatic: no lymphadenopathy noted and no lymphedema noted Resp normal respiratory effort Cardio regular rate and regular rhythm Extremity no calf tenderness Extremity Narrative: Vascular: DP and PT pulses palpable to bilateral foot. CFT is brisk to digits of both feet. Normal temperature gradient. Hair growth is present to digit. Neurologic: Epicritic sensation intact to foot without focal deficit noted Dermatologic: No ecchymosis, no erythema, no lesions to bilateral foot. There is diffuse mild nonpitting edema about the ankle and foot with right slightly more than left. No increased warmth to touch. Skin otherwise unremarkable Musculoskeletal: Muscle strength is 5/5 and age-appropriate. There is diffuse pain to palpation about the medial ankle, anterior ankle, lateral ankle, and distal tibiofibular joint bilaterally. Painful on right more than left. Pain with range of motion of the right ankle in dorsiflexion/plantarflexion, inversion/eversion. Negative anterior drawer test of the right ankle. There is palpable dorsal osteophyte at the tarsometatarsal joint at the dorsal lateral foot secondary to degenerative arthritic changes. Skin no rashes or lesions noted Neuro moves all extremities Assessment & Plan Assessment/Plan (1) Acute gout: (2) Bilateral ankle pain: (3) Bilateral foot pain: PLAN: Plan Patient seen and evaluated with present. Reviewed laboratory findings which did demonstrate elevated white count of 17.3, which is likely reactive in the setting of elevated uric acid at 7.9. WBC did trend down and currently within normal limits. Currently on no IV antibiotic. Did have elevated ESR of 50 and CRP of 79.40. Both are trending down slightly today at 46 and 62.9 respectively. She had previously trialed naproxen with very little to no improvement. Currently now on oral steroid Dosepak, will continue to monitor for improvement. Examination did demonstrate mild edema of bilateral ankles with right slightly more than left. There is diffuse pain about the ankle both medial lateral and anterior in addition to pain with range of motion with right greater than left. I did discuss with patient previous diet which could precipitate gout attack. Brief diet guide was given however more detailed diet plan will be provided to the patient. Discussed with her continuing on the current steroid regimen with elevation of the lower extremities to improve edema and discomfort. Following this we will reevaluate for improvement and if necessary MRI may be ordered of the right ankle for further evaluation with potential tendinitis as differential. Did discuss possibility of long-term therapeutic treatment with allopurinol if additional gout flare does occur. May continue weightbearing as tolerated. PT is continuing to follow and work with patient to aid in strengthening lower extremities. Patient does state she may end up at a skilled facility once discharged. If she is discharged she is to continue to follow in office with podiatry for continued care if pain does not improve. Please do not hesitate to reach out with any questions or concerns Will continue to follow and monitor for improvement
[2025-10-21 15:03] VITALS: BP 120/80; PULSE 53; RESP 17; TEMP 36.6; O2SAT 96
[2025-10-21] MEDS: 0.9% Saline Lock 10 ML Syringe IV (16:15)
--- NOTE | 2025-10-21 17:23 | CASEMGMT ---
PASRR completed and filed on chart
[2025-10-21 20:06] VITALS: BP 135/80; PULSE 55; RESP 14; TEMP 36.6; O2SAT 98
[2025-10-22] MEDS: hydrOXYzine PAM 25 MG Capsule PO (00:16)
[2025-10-22] MEDS: 0.9% Saline Lock 10 ML Syringe IV ×2 (00:16→06:25)
[2025-10-22 01:39] VITALS: BP 157/71; PULSE 69; RESP 14; TEMP 36.6; O2SAT 98
[2025-10-22 05:07] VITALS: BP 142/78; PULSE 65; RESP 17; TEMP 36.6; O2SAT 100
[2025-10-22 06:35] LABS: Hematocrit 37.3 % (37-47); Hemoglobin 12.2 g/dL (12.0-15.0); Mean Corp Hgb Conc 32.7 g/dL (32-36); Mean Corpuscular Volume 89.9 fL (81-99); Mean Platelet Vol. 10.2 fl (6.2-12.0); Platelet Count 414 K/mm3 (150-450); RBC Distribution Width CV 13.0 % (11.6-14.6); RBC Distribution Width SD 42.5 fl (35.1-43.9); Red Blood Count 4.15 M/mm3 (4.2-5.4); White Blood Count 11.3 K/mm3 (4.4-11.0)
[2025-10-22 07:00] LABS: Anion Gap 15 (5-15); BUN 23 mg/dL (4-19); BUN/Creat Ratio 24.2 RATIO (10-20); Calcium,Total 9.0 mg/dL (7.6-11.0); Carbon Dioxide 23.6 mmol/L (21.0-32.0); Chloride 101 mmol/L (98-108); Estimated Creatinine Clearance 101.76 ml/min (50-250); Glucose 81 mg/dL (70-99); Potassium 3.4 mmol/L (3.3-5.1)
[2025-10-22 07:56] VITALS: BP 127/70; PULSE 73; RESP 18; TEMP 36.9; O2SAT 100
[2025-10-22] MEDS: Senna/Docusate Sodium 1 Tablet 2 TABLET PO ×2 (09:05→20:00)
[2025-10-22] MEDS: Potassium Chloride Oral Tablet 20 MEQ PO (09:54)
--- NOTE | 2025-10-22 10:20 | PN.HOSP_ITS ---
Reason for Visit Chief Complaint: Bilateral ankle pain, unable to ambulate Subjective Subjective Saw patient at bedside this morning. Patient appeared similar today to yesterday, sitting back in bed and in no acute distress. She notes mild continued improvement in swelling in both ankles. She does continue to have fairly significant pain with weightbearing and ambulation but notes this is slowly improving. No other acute concerns at this morning. Objective Data Objective Data Vital Signs: Vital Signs Temp Pulse Resp BP Pulse Ox O2 Del Method 98.5 F 73 18 127/70 H 100 Room Air 10/22/25 07:56 10/22/25 07:56 10/22/25 07:56 10/22/25 07:56 10/22/25 07:56 10/22/25 08:17 Oxygen Delivery Method Room Air Weight: 142.8 kg Body Mass Index (BMI) 54.0 Intake & Output: Intake and Output for Last 24 Hours 10/20/25 10/21/25 10/22/25 23:59 23:59 23:59 Intake Total 2049 / 2049 1600 / 1600 120 / 120 Output Total 2650 / 2650 450 / 450 Balance 2049 -1050 / -1050 -330 / -330 Lab / Micro Data 10/22/25 05:45 10/22/25 05:45 Labs: Laboratory Results - last 24 hr 10/22/25 05:45: WBC 11.3 H, RBC 4.15 L, Hgb 12.2, Hct 37.3, MCV 89.9, MCH 29.4, MCHC 32.7, RDW Std Deviation 42.5, RDW Coeff of Kavon 13.0, Plt Count 414, MPV 10.2, Sodium 140, Potassium 3.4, Chloride 101, Carbon Dioxide 23.6, Anion Gap 15, BUN 23 H, Creatinine 0.96, Estim Creat Clear Calc 101.76, Est GFR (MDRD) Non-Af 73, BUN/Creatinine Ratio 24.2 H, Glucose 81, Calcium 9.0 Patient's Goals Of Care - F/U Goals Reviewed Goals of care reviewed with patient: NA-No significant change in clinical Status /major procedure scheduled Physical Exam Const alert, oriented x3 and no apparent distress Constitutional Narrative: Middle-age female, class III obesity, sitting back comfortably in bed, conversing normally, in no acute distress. General Appearance: cooperative and comfortable HEENT normocephalic, head/scalp atraumatic, hearing grossly normal bilaterally, nasal mucous membranes and turbinates normal and moist oral mucous membranes Eyes PERRL, EOMs intact bilaterally and conjunctivae normal Neck full ROM Chest inspection of chest normal Resp normal respiratory effort, normal air movement, no use of accessory muscles and clear to auscultation bilaterally Cardio regular rate, regular rhythm, no murmurs and peripheral pulses 2+ throughout GI normal to inspection, nondistended, normoactive bowel sounds, soft to palpation, non-tender and non-distended Back/Spine normal ROM Extremity Extremity Narrative: Mild edema of bilateral ankles, improving. Skin no rashes or lesions noted Psych mental status grossly normal Assessment & Plan Assessment/Plan (1) Acute gout: (2) Bilateral ankle pain: PLAN: Plan Patient is a 50-year-old female who presented to [facility] ED on 10/17/2025 with bilateral ankle/foot pain and difficulty with ambulation. 1. Bilateral ankle/foot pain and difficulty with ambulation ? Podiatry following. PT/OT/case management following. Bilateral foot and ankle x-rays on admit with nonspecific generalized soft tissue swelling, no other abnormalities noted. CRP 79, ESR 50. Uric acid 7.9. RF factor negative. Per podiatry, highest concern is for gout at this time. Initially treated with NSAIDs with minimal improvement so initiated on prednisone 40 mg daily on 10/19 and patient has had moderate improvement. Inflammatory markers are trending down. Patient has had borderline therapy scores so plan is for SNF on discharge. Patient medically ready for discharge on 10/21, awaiting placement. Planning for steroid taper on discharge. Will need close outpatient follow-up and can consider initiating allopurinol once steroid course is completed. 2. Reported history of RA ? Patient reports history of juvenile rheumatoid arthritis, has not had significant issues in adulthood. RF factor negative on admit as above. However, cannot rule out RA as contributing factor at this time. Continue treatment with steroids as above. 3. Hypokalemia ? Potassium 3.0 on admit. Mag and Phos normal. Potassium continuing to slightly drop despite repletion so will initiate 20 mEq supplement daily. Continue to monitor BMP daily. 4. Hypertension ? Has been normotensive during this hospitalization. Continue home atenolol and chlorthalidone. 5. Class III obesity ? BMI 54 on admit. Complicates hospital course and care. Patient is on tirzepatide and reports approximately 30 pound weight loss over the past 3 months. Continue tirzepatide in the outpatient setting and encouraged continued dietary and lifestyle modifications. DVT prophylaxis: Lovenox twice daily CODE STATUS: Full code, verified Expected disposition: SNF, medically ready for discharge on 10/21, awaiting placement Total clinical time spent by myself addressing the patient's medical issues, reviewing all the data, and collaborating with patient's care team: 37 minutes. Charges/Coding Visit Charges Inpatient E&M: 23450 Subs Hosp L2
[2025-10-22 13:44] VITALS: BP 149/78; PULSE 72; RESP 18; TEMP 36.7; O2SAT 100
[2025-10-22 18:00] VITALS: RESP 18
[2025-10-22 20:00] VITALS: BP 144/82; PULSE 72; RESP 18; TEMP 36.8; O2SAT 98
[2025-10-23 01:45] VITALS: BP 130/71; PULSE 67; RESP 16; TEMP 36.3; O2SAT 97
[2025-10-23 07:45] VITALS: BP 151/83; PULSE 59; RESP 18; TEMP 36.4; O2SAT 97
[2025-10-23] MEDS: Potassium Chloride Oral Tablet 20 MEQ PO (09:46)
[2025-10-23] MEDS: Senna/Docusate Sodium 1 Tablet 2 TABLET PO ×2 (09:46→20:47)
--- NOTE | 2025-10-23 09:57 | PCM.PN.HOSP ---
Reason for Visit Chief Complaint: Bilateral ankle pain, unable to ambulate Subjective Subjective Saw patient at bedside this morning. Patient appeared similar today to previous days. Notes that the swelling and pain in her feet feel similar today to yesterday. No other new concerns this morning. Objective Data Objective Data Vital Signs: Vital Signs Temp Pulse Resp BP Pulse Ox O2 Del Method 97.5 F L 59 L 18 151/83 H 97 Room Air 10/23/25 07:45 10/23/25 07:45 10/23/25 07:45 10/23/25 07:45 10/23/25 07:45 10/23/25 07:45 Oxygen Delivery Method Room Air Weight: 142.8 kg Body Mass Index (BMI) 54.0 Intake & Output: Intake and Output for Last 24 Hours 10/21/25 10/22/25 10/23/25 23:59 23:59 23:59 Intake Total 1600 / 1600 1770 / 1770 Output Total 2650 / 2650 450 / 450 Balance -1050 / -1050 1320 / 1320 Lab / Micro Data 10/22/25 05:45 10/22/25 05:45 Patient's Goals Of Care - F/U Goals Reviewed Goals of care reviewed with patient: NA-No significant change in clinical Status /major procedure scheduled Physical Exam Const alert, oriented x3 and no apparent distress Constitutional Narrative: Middle-age female, class III obesity, sitting back comfortably in bed, conversing normally, in no acute distress. General Appearance: cooperative and comfortable HEENT normocephalic, head/scalp atraumatic, hearing grossly normal bilaterally, nasal mucous membranes and turbinates normal and moist oral mucous membranes Eyes PERRL, EOMs intact bilaterally and conjunctivae normal Neck full ROM Chest inspection of chest normal Resp normal respiratory effort, normal air movement, no use of accessory muscles and clear to auscultation bilaterally Cardio regular rate, regular rhythm, no murmurs and peripheral pulses 2+ throughout GI normal to inspection, nondistended, normoactive bowel sounds, soft to palpation, non-tender and non-distended Back/Spine normal ROM Extremity Extremity Narrative: Mild edema of bilateral ankles, improving. Skin no rashes or lesions noted Psych mental status grossly normal Assessment & Plan Assessment/Plan (1) Acute gout: (2) Bilateral ankle pain: PLAN: Plan Patient is a 50-year-old female who presented to [facility] ED on 10/17/2025 with bilateral ankle/foot pain and difficulty with ambulation. 1. Bilateral ankle/foot pain and difficulty with ambulation ? Podiatry following. PT/OT/case management following. Bilateral foot and ankle x-rays on admit with nonspecific generalized soft tissue swelling, no other abnormalities noted. CRP 79, ESR 50. Uric acid 7.9. RF factor negative. Per podiatry, highest concern is for gout at this time. Initially treated with NSAIDs with minimal improvement so initiated on prednisone 40 mg daily on 10/19 and patient has had moderate improvement. Inflammatory markers are trending down. Patient has had borderline therapy scores so plan is for SNF on discharge. Patient medically ready for discharge on 10/21, awaiting placement. Planning for steroid taper on discharge. Will need close outpatient follow-up and can consider initiating allopurinol once steroid course is completed. 2. Reported history of RA ? Patient reports history of juvenile rheumatoid arthritis, has not had significant issues in adulthood. RF factor negative on admit as above. However, cannot rule out RA as contributing factor at this time. Continue treatment with steroids as above. 3. Hypokalemia ? Potassium 3.0 on admit. Mag and Phos normal. Potassium continuing to slightly drop despite repletion so initiated on 20 mEq supplement daily. Continue to monitor BMP daily. 4. Hypertension ? Has been normotensive during this hospitalization. Continue home atenolol and chlorthalidone. 5. Class III obesity ? BMI 54 on admit. Complicates hospital course and care. Patient is on tirzepatide and reports approximately 30 pound weight loss over the past 3 months. Continue tirzepatide in the outpatient setting and encouraged continued dietary and lifestyle modifications. DVT prophylaxis: Lovenox twice daily CODE STATUS: Full code, verified Expected disposition: SNF, medically ready for discharge on 10/21, awaiting placement Total clinical time spent by myself addressing the patient's medical issues, reviewing all the data, and collaborating with patient's care team: 35 minutes. Charges/Coding Visit Charges Inpatient E&M: 73482 Subs Hosp L2
[2025-10-23 13:00] VITALS: BP 141/84; PULSE 79; RESP 17; TEMP 36.4; O2SAT 98
[2025-10-23 20:45] VITALS: BP 132/67; PULSE 66; RESP 18; TEMP 36.4; O2SAT 95
[2025-10-24 00:59] VITALS: BP 118/62; PULSE 59
[2025-10-24 02:45] VITALS: BP 133/80; PULSE 70; RESP 16; TEMP 36.9; O2SAT 97
[2025-10-24 04:47] LABS: Hematocrit 40.4 % (37-47); Hemoglobin 13.6 g/dL (12.0-15.0); Mean Corp Hgb Conc 33.7 g/dL (32-36); Mean Corpuscular Volume 87.4 fL (81-99); Mean Platelet Vol. 10.0 fl (6.2-12.0); Platelet Count 452 K/mm3 (150-450); RBC Distribution Width CV 13.0 % (11.6-14.6); RBC Distribution Width SD 40.8 fl (35.1-43.9); Red Blood Count 4.62 M/mm3 (4.2-5.4); White Blood Count 17.3 K/mm3 (4.4-11.0)
[2025-10-24 05:11] LABS: Anion Gap 14 (5-15); BUN 21 mg/dL (4-19); BUN/Creat Ratio 24.7 RATIO (10-20); Calcium,Total 9.6 mg/dL (7.6-11.0); Carbon Dioxide 23.0 mmol/L (21.0-32.0); Chloride 100 mmol/L (98-108); Estimated Creatinine Clearance 113.59 ml/min (50-250); Glucose 119 mg/dL (70-99); Potassium 4.2 mmol/L (3.3-5.1)
--- NOTE | 2025-10-24 08:44 | CASEMGMT ---
Addendum entered by Sarah Mckeon 10/24/25 08:59: *precert remains pending Original Note: Discharge Planning Updates sent via [facility] to [place]. Sarah Mckeon DC Planning Asst.
[2025-10-24 09:17] VITALS: BP 147/71; PULSE 67; RESP 18; TEMP 36.2; O2SAT 97
[2025-10-24] MEDS: Senna/Docusate Sodium 1 Tablet 2 TABLET PO (09:20)
--- NOTE | 2025-10-24 11:42 | DS.PCM_ITS ---
Providers Date of Admission: 10/17/25 Date of Discharge: 10/24/25 Primary Care Physician: Dr. Mary Fernandez MD Consultations 10/17/25 21:10 Consult: Podiatry Routine Consulting Provider: Aram Bills Reason for Consult: Bilateral foot pain EMERGENT Consult: Yes MD Notified: Yes Date Notified: 10/17/25 Time Notified: 20:49 Method of Notification: Verbal Reason For Visit: BILATERAL FOOT AND ANKLE PAIN Diagnosis Discharge Diagnosis (1) Acute gout: Status: Acute Code(s): M10.9 - Gout, unspecified (2) Bilateral ankle pain: Status: Acute Code(s): M25.571 - Pain in right ankle and joints of right foot; M25.572 - Pain in left ankle and joints of left foot Medications at Discharge Home Medications atenolol 50 mg-chlorthalidone 25 mg tablet 1 tab PO DAILY 07/06/21 ibuprofen 200 mg tablet (Advil) 400 mg PO Q6H PRN fever or pain 10/17/25 tirzepatide (weight loss) 7.5 mg/0.5 mL subcutaneous pen injector (Zepbound) 7.5 mg subcut QWEEK 10/17/25 acetaminophen 500 mg tablet 650 mg (1.3 x 500 mg) PO Q6H PRN PRN 30 days #0 tabs 10/24/25 oxycodone 5 mg tablet 5 mg PO TID PRN PRN Pain Score 6-10 7 days #0 tabs 10/24/25 pantoprazole 40 mg tablet,delayed release 40 mg PO DAILY 30 days #0 tabs 10/24/25 prednisone 10 mg tablet See Taper PO DAILY 12 days #30 tabs 10/24/25 sennosides 8.6 mg-docusate sodium 50 mg tablet (Stimulant Laxative Plus) 1 tab PO BID 7 days #0 tabs 10/24/25 Hospital Course Operations None Procedures - (Bilateral foot and ankle x-rays) Summary of Care Provided Minutes Spent on Discharge: 36 Hospital Course: Patient is a 50-year-old female who presented to [facility] ED on 10/17/2025 with bilateral ankle/foot pain and difficulty with ambulation. Hospital course as noted below. Patient discharged to SNF in stable condition on 10/24. 1. Bilateral ankle/foot pain and difficulty with ambulation ? Podiatry followed. PT/OT/case management followed. Bilateral foot and ankle x-rays on admit with nonspecific generalized soft tissue swelling, no other abnormalities noted. CRP 79, ESR 50. Uric acid 7.9. RF factor negative. Per podiatry, highest concern is for gout at this time. Initially treated with NSAIDs with minimal improvement so initiated on prednisone 40 mg daily on 10/19 and patient has had moderate improvement. Inflammatory markers trended down well. Patient had borderline therapy scores and thus required stent placement on discharge. Will discharge on prednisone taper of 40 mg x 3 days, then 30 mg x 3 days, then 20 mg x 3 days, then 10 mg x 3 days. Will need close outpatient follow-up and can consider initiating allopurinol once steroid course is completed. 2. Reported history of RA ? Patient reports history of juvenile rheumatoid arthritis, has not had significant issues in adulthood. RF factor negative on admit as above. However, cannot rule out RA as contributing factor at this time. Continue treatment with steroids as above. 3. Hypokalemia ? Potassium 3.0 on admit. Mag and Phos normal. Potassium improved with repletion and with reinitiation of home chlorthalidone. 4. Hypertension ? Normotensive during this hospitalization. Continue home atenolol and chlorthalidone. 5. Class III obesity ? BMI 54 on admit. Complicated hospital course and care. Patient is on tirzepatide and reports approximately 30 pound weight loss over the past 3 months. Continue tirzepatide in the outpatient setting and encouraged continued dietary and lifestyle modifications. Total clinical time spent by myself addressing the patient's medical issues, reviewing all the data, and collaborating with patient's care team: 36 minutes. Physical Exam Const alert, oriented x3 and no apparent distress Constitutional Narrative: Middle-age female, class III obesity, sitting back comfortably in bed, conversing normally, in no acute distress. General Appearance: cooperative and comfortable HEENT normocephalic, head/scalp atraumatic, hearing grossly normal bilaterally, nasal mucous membranes and turbinates normal and moist oral mucous membranes Eyes PERRL, EOMs intact bilaterally and conjunctivae normal Neck full ROM Chest inspection of chest normal Resp normal respiratory effort, normal air movement, no use of accessory muscles and clear to auscultation bilaterally Cardio regular rate, regular rhythm, no murmurs and peripheral pulses 2+ throughout GI normal to inspection, nondistended, normoactive bowel sounds, soft to palpation, non-tender and non-distended Back/Spine normal ROM Extremity Extremity Narrative: Mild edema of bilateral ankles, improving. Skin no rashes or lesions noted Psych mental status grossly normal Weight / BMI Weight Weight: 142.8 kg Body Mass Index (BMI) 54.0 ABG / Lab / Microbiology Data 10/24/25 04:30 10/24/25 04:30 Laboratory: Laboratory Results - last 24 hr 10/24/25 04:30: WBC 17.3 H, RBC 4.62, Hgb 13.6, Hct 40.4, MCV 87.4, MCH 29.4, MCHC 33.7, RDW Std Deviation 40.8, RDW Coeff of Kavon 13.0, Plt Count 452 H, MPV 10.0, Sodium 137, Potassium 4.2, Chloride 100, Carbon Dioxide 23.0, Anion Gap 14, BUN 21 H, Creatinine 0.86, Estim Creat Clear Calc 113.59, Est GFR (MDRD) Non-Af 84, BUN/Creatinine Ratio 24.7 H, Glucose 119 H, Calcium 9.6 D/C Instructions DC O2, CPAP, BIPAP Needs Home O2 Discharge instructions: No Patient's Goals Of Care - F/U Goals Reviewed Goals of care reviewed with patient: NA-No significant change in clinical Status /major procedure scheduled Meaningful Use Info Meaningful Use Meaningful Use Diagnoses (Choose all that apply): None applicable Discharge Plan Admission Admit Date/Time: 10/17/25 20:45 Primary Reason for Your Visit: Bilateral foot and ankle pain Attending Provider: Chris Jones Primary Care Provider: Mary Fernandez Consulting Providers: Aram Bills; Angel [place]; Dora Del Cid Discharge Orders/Prescriptions Prescriptions: New sennosides-docusate sodium [Stimulant Laxative Plus] 8.6-50 mg Tablet 1 tab PO BID 7 Days Qty: 0 0RF acetaminophen 500 mg Tablet 650 mg PO Q6H PRN PRN30 Days Qty: 0 0RF pantoprazole 40 mg Tablet,Delayed Release (Dr/Ec) 40 mg PO DAILY 30 Days Qty: 0 0RF oxycodone 5 mg Tablet 5 mg PO TID PRN PRN (Reason: Pain Score 6-10) 7 Days Qty: 0 0RF prednisone 10 mg tablet See Taper PO DAILY 12 Days Qty: 30 0RF Taper: Prednisone Taper 40 mg WITH BREAKFAST for 3 Days and 0 Hour 30 mg WITH BREAKFAST for 3 Days and 0 Hour 20 mg WITH BREAKFAST for 3 Days and 0 Hour 10 mg WITH BREAKFAST for 3 Days and 0 Hour Continued atenolol-chlorthalidone 50-25 mg tablet 1 tab PO DAILY Zepbound 7.5 mg/0.5 mL pen injector 7.5 mg subcut QWEEK ibuprofen [Advil] 200 mg tablet 400 mg PO Q6H PRN (Reason: fever or pain) Referrals / Follow Up: Mary Fernandez MD [Primary Care Provider, Family Practice] Disposition Disposition (needs filled in before D/C Order can be placed): [facility] Facility Charges/Coding Visit Charges Inpatient E&M: 79831 Disch Hosp >30min
--- NOTE | 2025-10-24 11:42 | PCM.TXEXTCAR ---
Diet Diet Order/Speech Therapy: INPATIENT Hospital Diet / Speech Therapy Order(s) 10/18/25 15:59 Diet: Cardiac: Calorie-Controlled Food consistency:: Regular Liquid Consistency:: Regular/Thin How many daily calories?: 1600 calorie DC O2, CPAP, BIPAP needs Home O2 Discharge instructions: No Therapies Weight Bearing: Weight bearing as tolerated Physical Therapy: Eval and Treat Occupational Therapy: Eval and Treat Problem/Diagnosis (1) Acute gout: Status: Acute Code(s): M10.9 - Gout, unspecified (2) Bilateral ankle pain: Status: Acute Code(s): M25.571 - Pain in right ankle and joints of right foot; M25.572 - Pain in left ankle and joints of left foot Plan Patient is a 50-year-old female who presented to [facility] ED on 10/17/2025 with bilateral ankle/foot pain and difficulty with ambulation. Hospital course as noted below. Patient discharged to SNF in stable condition on 10/24. 1. Bilateral ankle/foot pain and difficulty with ambulation ? Podiatry followed. PT/OT/case management followed. Bilateral foot and ankle x-rays on admit with nonspecific generalized soft tissue swelling, no other abnormalities noted. CRP 79, ESR 50. Uric acid 7.9. RF factor negative. Per podiatry, highest concern is for gout at this time. Initially treated with NSAIDs with minimal improvement so initiated on prednisone 40 mg daily on 10/19 and patient has had moderate improvement. Inflammatory markers trended down well. Patient had borderline therapy scores and thus required stent placement on discharge. Will discharge on prednisone taper of 40 mg x 3 days, then 30 mg x 3 days, then 20 mg x 3 days, then 10 mg x 3 days. Will need close outpatient follow-up and can consider initiating allopurinol once steroid course is completed. 2. Reported history of RA ? Patient reports history of juvenile rheumatoid arthritis, has not had significant issues in adulthood. RF factor negative on admit as above. However, cannot rule out RA as contributing factor at this time. Continue treatment with steroids as above. 3. Hypokalemia ? Potassium 3.0 on admit. Mag and Phos normal. Potassium improved with repletion and with reinitiation of home chlorthalidone. 4. Hypertension ? Normotensive during this hospitalization. Continue home atenolol and chlorthalidone. 5. Class III obesity ? BMI 54 on admit. Complicated hospital course and care. Patient is on tirzepatide and reports approximately 30 pound weight loss over the past 3 months. Continue tirzepatide in the outpatient setting and encouraged continued dietary and lifestyle modifications. Total clinical time spent by myself addressing the patient's medical issues, reviewing all the data, and collaborating with patient's care team: 36 minutes. Allergies/Procedures Done in Hospital Allergies morphine Allergy (Verified 10/17/25 11:45) Hives Sulfa (Sulfonamide Antibiotics) Adverse Reaction (Verified 10/17/25 11:45) Vomiting Type of Care/Length of Stay Estimated LOS: Convalescent Care Less Than 30 days Type of Care Needed: Skilled Rehab Potential: Fair Prognosis: Fair Additional Orders/Day of Discharge H&P will serve as current which was dated: 10/17/25 Day of Discharge: 10/24/25 Dietary and Speech Recommendations Dietitian Recommendations/Changes: Will order 1600 calorie; cardiac diet to promote weight loss with adherence. ONS not indicated at this time. Refer to [facility] out-patient RD for supportive weight loss when ready for positive lifestyle change. Discharge Plan Admission Admit Date/Time: 10/17/25 20:45 Primary Reason for Your Visit: Bilateral foot and ankle pain Attending Provider: Chris Jones Primary Care Provider: Mary Fernandez Consulting Providers: Aram Bills; [place]; Dora Del Cid Discharge Orders/Prescriptions Prescriptions: New sennosides-docusate sodium [Stimulant Laxative Plus] 8.6-50 mg Tablet 1 tab PO BID 7 Days Qty: 0 0RF acetaminophen 500 mg Tablet 650 mg PO Q6H PRN PRN30 Days Qty: 0 0RF pantoprazole 40 mg Tablet,Delayed Release (Dr/Ec) 40 mg PO DAILY 30 Days Qty: 0 0RF oxycodone 5 mg Tablet 5 mg PO TID PRN PRN (Reason: Pain Score 6-10) 7 Days Qty: 0 0RF prednisone 10 mg tablet See Taper PO DAILY 12 Days Qty: 30 0RF Taper: Prednisone Taper 40 mg WITH BREAKFAST for 3 Days and 0 Hour 30 mg WITH BREAKFAST for 3 Days and 0 Hour 20 mg WITH BREAKFAST for 3 Days and 0 Hour 10 mg WITH BREAKFAST for 3 Days and 0 Hour Continued atenolol-chlorthalidone 50-25 mg tablet 1 tab PO DAILY Zepbound 7.5 mg/0.5 mL pen injector 7.5 mg subcut QWEEK ibuprofen [Advil] 200 mg tablet 400 mg PO Q6H PRN (Reason: fever or pain) Referrals / Follow Up: Mary Fernandez MD [Primary Care Provider, Family Practice] Disposition Disposition (needs filled in before D/C Order can be placed): [facility]
--- NOTE | 2025-10-24 11:43 | CASEMGMT ---
Rosangela has obtained auth to admit. CLEMENCIA CM updated. Sarah Mckeon DC Planning Asst.
--- NOTE | 2025-10-24 12:28 | CASEMGMT ---
CLEMENCIA MAX updated that precert had been obtained for patient to go to [facility] for skilled level of care. CLEMENCIA MAX in to updated patient. Patient states he has to work and is unable to transport patient. Patient would like staff to setup WC for transport. CLEMENCIA MAX updated hospitalist that precert has been obtained and discharge order placed. CLEMENCIA MAX completed transport for and provided discharge paperwork and signed medlist to DC urban planning professor. CLEMENCIA MAX requested DC Valve Mechanic to setup transport and notify [facility] and patient and family of transport time.
--- NOTE | 2025-10-24 13:05 | NURSING ---
Report called to Krystian at [facility], all questions answered, aware of pickup time [id number]
--- NOTE | 2025-10-24 13:38 | PHA.DC.MR.R ---
Pharmacy [place] Med Reconciliation Pharmacy Service has performed discharge medication reconciliation for this patient. The patient's discharge medication list was reviewed for discrepancies and discrepancies were resolved. Medications at Discharge Home Medications atenolol 50 mg-chlorthalidone 25 mg tablet 1 tab PO DAILY 07/06/21 ibuprofen 200 mg tablet (Advil) 400 mg PO Q6H PRN fever or pain 10/17/25 tirzepatide (weight loss) 7.5 mg/0.5 mL subcutaneous pen injector (Zepbound) 7.5 mg subcut QWEEK 10/17/25 acetaminophen 500 mg tablet 650 mg (1.3 x 500 mg) PO Q6H PRN PRN 30 days #0 tabs 10/24/25 oxycodone 5 mg tablet 5 mg PO TID PRN PRN Pain Score 6-10 7 days #0 tabs 10/24/25 pantoprazole 40 mg tablet,delayed release 40 mg PO DAILY 30 days #0 tabs 10/24/25 prednisone 10 mg tablet See Taper PO DAILY 12 days #30 tabs 10/24/25 sennosides 8.6 mg-docusate sodium 50 mg tablet (Stimulant Laxative Plus) 1 tab PO BID 7 days #0 tabs 10/24/25
[2025-10-24 14:21] VITALS: BP 144/87; PULSE 61; RESP 16; TEMP 36.1; O2SAT 94
--- NOTE | 2025-10-24 14:27 | CASEMGMT ---
Discharge Planning Discharge orders, signed med list, and transport time sent via [facility] to [address]. Physicians will transport pt by wheelchair at 1:30p. Nursing, RN CM, and pt updated. Pt to update her . Sarah Mckeon DC Planning Asst.
== END 2025-10-24 14:31 | disposition skilled nursing facility (03) | DRG 554 ==
LOC: ED 20:34 → PCU 21:00
PROVIDERS: Internal Medicine; Admitting Provider Family Medicine; Emergency Provider Emergency Medicine; PCP Family Medicine; Visit Provider Hospitalist
DX: M10.071 Idiopathic gout, right ankle and foot (principal); Z68.43 Body mass index [BMI] 50.0-59.9, adult; M08.00 Unspecified juvenile rheumatoid arthritis of unspecified site; I10 Essential (primary) hypertension; E87.6 Hypokalemia; R26.2 Difficulty in walking, not elsewhere classified; M25.571 Pain in right ankle and joints of right foot; M25.572 Pain in left ankle and joints of left foot; M79.671 Pain in right foot; M79.672 Pain in left foot; E66.813 Obesity, class 3; Z79.85 Long-term (current) use of injectable non-insulin antidiabetic drugs; Z87.891 Personal history of nicotine dependence; Z23 Encounter for immunization; Z96.649 Presence of unspecified artificial hip joint; Z96.659 Presence of unspecified artificial knee joint; Z98.51 Tubal ligation status; Z79.899 Other long term (current) drug therapy
CPT/HCPCS: 36415; 73610; 73630; 80048; 80053; 83036; 83735; 84100; 84145; 84550; 85025; 85027; 85610; 85652; 86038; 86140; 86200; 86225; 86235; 86431; 97116; 97162; 97166; 97530; 97535; 99284; A4216; J2405